=== PATIENT | female | born 1980 | race Caucasian/White ===

== ENCOUNTER 2017-06-11 23:55 | Emergency (ER) | payer OTHER ==
[2017-06-12 00:14] LABS: URINE HCG POC HCG NEGATIVE (Negative)
[2017-06-12] MEDS ORDERED: 0.9 % SODIUM CHLORIDE 10 ML DISP.SYRIN. IV (00:15)
[2017-06-12 00:22] LABS: ADD MAN DIFF? NO
[2017-06-12 00:24] LABS: RED BLOOD COUNT 4.34 x10^6/uL (3.50-5.40); WHITE BLOOD COUNT 6.5 x10^3/uL (4.0-11.0)
[2017-06-12 00:25] LABS: BASO # 0.1 x10^3/uL (0.0-0.2); BASO % 1 % (0-3); EOS # 0.3 x10^3/uL (0.0-0.7); EOS % 5 % (0-3); HEMATOCRIT 38.1 % (36.0-47.0); HEMOGLOBIN 12.4 g/dL (12.0-15.5); LYMPH # 2.9 x10^3/uL (1.0-4.8); LYMPH % 45 % (24-48); MEAN CORPUSCULAR HEMOGLOBIN 29 pg (25-35); MEAN CORPUSCULAR HGB CONC 33 g/dL (31-37); MEAN CORPUSCULAR VOLUME 88 fL (79-100); MONO # 0.6 x10^3/uL (0.0-1.1); MONO % 9 % (0-9); NEUT # 2.6 x10^3uL (1.8-7.7); NEUT % 41 % (31-73); PLATELET COUNT 288 x10^3/uL (140-400); RED CELL DISTRIBUTION WIDTH 15.9 % (11.5-14.5)
[2017-06-12 00:26] LABS: BILIRUBIN,URINE NEGATIVE (NEG); CLARITY,URINE CLEAR; GLUCOSE,URINE NEGATIVE (NEG); NITRITE,URINE NEGATIVE (NEG); PROTEIN,URINE NEGATIVE (NEG-TRACE)
[2017-06-12] MEDS: IV NORMAL SALINE 1000ML BAG 1,000 ML IV (00:27)
[2017-06-12] MEDS: HYDROmorphone 2 MG/ML VIAL IV/SQ (00:28)
[2017-06-12] MEDS: ONDANSETRON PF 4 MG/2 ML VIAL. IV (00:28)
[2017-06-12 00:37] LABS: ANION GAP 9 (6-14); BACTERIA,URINE FEW /HPF (0-FEW); BLOOD UREA NITROGEN 11 mg/dL (7-20); CALCIUM 9.2 mg/dL (8.5-10.1); CARBON DIOXIDE 30 mmol/L (21-32); CHLORIDE 104 mmol/L (98-107); COLOR,URINE YELLOW; CREATININE 0.8 mg/dL (0.6-1.0); GFR 80.7; GLUCOSE 101 mg/dL (70-99); POTASSIUM 3.4 mmol/L (3.5-5.1); RBC,URINE OCC /HPF (0-2); SODIUM 143 mmol/L (136-145); SQUAMOUS EPITHELIAL CELL,UR FEW /LPF; WBC,URINE OCC /HPF (0-4)
[2017-06-12 00:40] LABS: ALBUMIN 4.2 g/dL (3.4-5.0); ALK PHOS 65 U/L (46-116); ALT (SGPT) 15 U/L (14-59); AST (SGOT) 12 U/L (15-37); DIRECT BILIRUBIN 0.1 mg/dL (0.0-0.2); LIPASE 202 U/L (73-393); TOTAL BILIRUBIN 0.3 mg/dL (0.2-1.0); TOTAL PROTEIN 8.1 g/dL (6.4-8.2)
[2017-06-12 00:42] LABS: TROPONINI < 0.017 ng/mL (0.000-0.055)
[2017-06-12] MEDS ORDERED: CONTRAST GIVEN MC (00:45)
[2017-06-12] MEDS: diphenhydrAMINE 50 MG/ML VIAL IVP (00:48)
[2017-06-12] MEDS: KETOROLAC 30 MG/ML INJ. IV (00:48)
[2017-06-12] MEDS: IOHEXOL 300 MG/ML 100ML VIAL. IV (01:00)
[2017-06-12 01:30] LABS: INFLUENZA A PATIENT NEGATIVE (NEGATIVE); INFLUENZA B PATIENT NEGATIVE (NEGATIVE); OBC FLU VALID
[2017-06-12] MEDS: fentaNYL PF VIAL 100 MCG/2 ML VIAL IV (01:31)
[2017-06-12] MEDS ORDERED: fentaNYL PF VIAL 100 MCG/2 ML VIAL IV (02:15)
== END 2017-06-12 02:04 | disposition home or self-care (01) ==
LOC: ER 23:55
DX: K76.1 Chronic passive congestion of liver (principal); E03.9 Hypothyroidism, unspecified; F17.210 Nicotine dependence, cigarettes, uncomplicated; Z90.49 Acquired absence of other specified parts of digestive tract; Z88.0 Allergy status to penicillin; Z88.1 Allergy status to other antibiotic agents; Z88.5 Allergy status to narcotic agent
CPT/HCPCS: 36415; 74177; 80048; 80076; 81001; 81025; 83690; 84484; 85025; 87804; 87804-59; 93005; 96361; 96374; 96375; 99285-25; J1200; J1885; J2405; J3010; J7030; Q9967

== ENCOUNTER 2017-10-05 01:04 | Emergency (ER) | payer OTHER ==
[2017-10-05 01:38] LABS: URINE HCG POC HCG NEGATIVE (Negative)
== END 2017-10-05 01:47 | disposition home or self-care (01) ==
LOC: ER 01:04
DX: S16.1XXA Strain of muscle, fascia and tendon at neck level, initial encounter (principal); E03.9 Hypothyroidism, unspecified; Z88.0 Allergy status to penicillin; Z88.1 Allergy status to other antibiotic agents; Z88.5 Allergy status to narcotic agent; Z90.49 Acquired absence of other specified parts of digestive tract; Y00.XXXA Assault by blunt object, initial encounter; Y93.89 Activity, other specified; Y92.89 Other specified places as the place of occurrence of the external cause; Y99.8 Other external cause status
CPT/HCPCS: 81025; 99281; 99282

== ENCOUNTER → 2018-06-07 | Outpatient (CLI) | payer OTHER ==
[2017-10-05 01:10] VITALS: BP 120/77
[~2018-06-07] MED LIST: DICY10CA53 PO; DIPH1TAB PO; NAPR-683 PO; ONDA4TAB10 PO
== END | disposition home or self-care (01) ==
LOC: EKG 11:01
PROVIDERS: ATTEND Internal Medicine Cardiovascular Disease
DX: R55 Syncope and collapse (principal)
CPT/HCPCS: 93660

== ENCOUNTER → 2018-08-07 | Outpatient (CLI) | payer OTHER ==
[2017-10-05 01:10] VITALS: BP 120/77
[~2018-08-07] MED LIST changes: +ALPR0.5T PO; +AMIT25TA PO; +LEVO100T5 PO; +ONDA4TAB7 PO; +SUMA50TA4 PO
--- NOTE | 2018-08-07 17:21 | KCIC ---
Indication:Chronic abdominal pain. Constipation. Decreased appetite. TECHNIQUE: Supine and upright views of the abdomen and pelvis COMPARISON: None FINDINGS: Heart is normal in size. Visualized lung bases are clear. No pneumoperitoneum. Liver is mildly enlarged measuring 24 cm in craniocaudal dimension. No abnormally dilated bowel loops. No abnormal calcific densities projecting over the kidneys to suggest apparent renal stones. Moderate distal colonic stool burden. IMPRESSION: 1. Moderate distal colonic stool burden. Patient may be constipated. 2. Mild hepatomegaly. Electronically signed by: Graeme Kaur DO (08/07/2018 5:18 PM) [facility]
== END | disposition home or self-care (01) ==
LOC: KCIC 15:55
PROVIDERS: ATTEND Physician Assistant Medical
DX: R16.0 Hepatomegaly, not elsewhere classified (principal); K59.00 Constipation, unspecified
CPT/HCPCS: 74021

== ENCOUNTER 2018-08-28 19:51 | Inpatient (IN) | payer OTHER ==
[~2018-08-28] VITALS: Ht 175.3 cm; Wt 64.2 kg
[~2018-08-28 19:51] MED LIST changes: -ALPR0.5T PO; -AMIT25TA PO; -LEVO100T5 PO; -ONDA4TAB7 PO; -SUMA50TA4 PO
[2018-08-28] MEDS ORDERED: ASPIRIN 325 MG TABLET PO ONE (20:15)
[2018-08-28 20:26] LABS: BASO % 1 % (0-3); EOS # 0.2 x10^3/uL (0.0-0.7); EOS % 4 % (0-3); HEMATOCRIT 35.7 % (36.0-47.0); HEMOGLOBIN 11.9 g/dL (12.0-15.5); LYMPH # 2.4 x10^3/uL (1.0-4.8); LYMPH % 42 % (24-48); MEAN CORPUSCULAR HEMOGLOBIN 29 pg (25-35); MEAN CORPUSCULAR HGB CONC 33 g/dL (31-37); MEAN CORPUSCULAR VOLUME 88 fL (79-100); MONO # 0.6 x10^3/uL (0.0-1.1); MONO % 11 % (0-9); NEUT # 2.5 x10^3uL (1.8-7.7); NEUT % 43 % (31-73); PLATELET COUNT 273 x10^3/uL (140-400); RED BLOOD COUNT 4.04 x10^6/uL (3.50-5.40); RED CELL DISTRIBUTION WIDTH 16.5 % (11.5-14.5); WHITE BLOOD COUNT 5.8 x10^3/uL (4.0-11.0)
[2018-08-28 20:35] LABS: BILIRUBIN,URINE NEGATIVE (NEG); CLARITY,URINE CLEAR; COLOR,URINE YELLOW; NITRITE,URINE NEGATIVE (NEG); PROTEIN,URINE NEGATIVE (NEG-TRACE); UROBILINOGEN,URINE 0.2 mg/dL (0.2 mg/dL)
[2018-08-28 20:36] LABS: PROTHROMBIN TIME PATIENT 13.7 SEC (11.7-14.0)
[2018-08-28 20:37] LABS: CALCIUM 9.6 mg/dL (8.5-10.1); CREATININE 0.7 mg/dL (0.6-1.0); GFR 93.6; POTASSIUM 3.2 mmol/L (3.5-5.1)
[2018-08-28 20:39] LABS: D-DIMER < 0.27 ug/mlFEU (0.00-0.50)
[2018-08-28 20:42] LABS: BACTERIA,URINE 0 /HPF (0-FEW); RBC,URINE OCC /HPF (0-2); WBC,URINE 0 /HPF (0-4)
[2018-08-28 20:43] LABS: SQUAMOUS EPITHELIAL CELL,UR FEW /LPF
[2018-08-28 20:43] LABS: ALBUMIN 4.6 g/dL (3.4-5.0); ALBUMIN/GLOBULIN RATIO 1.2 (1.0-1.7); MAGNESIUM 2.2 mg/dL (1.8-2.4); TOTAL BILIRUBIN 0.4 mg/dL (0.2-1.0); TOTAL PROTEIN 8.5 g/dL (6.4-8.2)
[2018-08-28 20:46] LABS: AMPHETAMINE/METHAMPHETAMINE NEG (NEG); BARBITURATES NEG (NEG); BENZODIAZEPINES NEG (NEG); CANNABINOIDS NEG (NEG); COCAINE NEG (NEG); METHADONE NEG (NEG); OPIATES NEG (NEG); PHENCYCLIDINE NEG (NEG)
[2018-08-28 20:52] LABS: CREATINE KINASE 46 U/L (26-192)
[2018-08-28] MEDS ORDERED: POTASSIUM CHLORIDE 20 MEQ TABLET.ER. PO ONE (21:15)
[2018-08-28] MEDS ORDERED: MECLIZINE HCL 12.5 MG TABLET. PO ONE (21:45)
[2018-08-28] MEDS ORDERED: IV NORMAL SALINE 1000ML BAG 1,000 ML IV ONE (22:15)
[2018-08-28] MEDS ORDERED: fentaNYL PF VIAL 100 MCG/2 ML VIAL IV PRN (22:15)
[2018-08-28] MEDS ORDERED: ONDANSETRON PF 4 MG/2 ML VIAL. IV PRN (22:15)
[2018-08-28] MEDS ORDERED: NITROGLYCERIN SUBLINGUAL 0.4 MG BOTTLE OF 25. SL PRN (22:15)
--- NOTE | 2018-08-28 22:15 | PHYS DOC ---
Past Medical History Past Medical History: Hypothyroid Past Surgical History: Cholecystectomy Alcohol Use: None Drug Use: None Adult General Chief Complaint Chief Complaint: CHEST PAIN HPI HPI Patient is a 38 year old female with history of hypothyroidism, hole in the heart, who presents today complaining of 6 out of 10 of sternal chest pain nonradiating in nature that began at 2 PM today. Patient's also complaining of intermittent episodes of dizziness. She states she almost passed out today. Denies anything specific in excess abating or relieving the pain. Patient states she has been following up with Dr. Schwartz and they are supposed to do a test on for cardiac work up. Review of Systems Review of Systems Constitutional: Denies fever or chills [] Eyes: Denies change in visual acuity, redness, or eye pain [] HENT: Denies nasal congestion or sore throat [] Respiratory: Denies cough or shortness of breath [] Cardiovascular: Reports chest pain GI: Denies abdominal pain, nausea, vomiting, bloody stools or diarrhea [] : Denies dysuria or hematuria [] Musculoskeletal: Denies back pain or joint pain [] Integument: Denies rash or skin lesions [] Neurologic: Reports dizziness. Denies headache, focal weakness or sensory changes [] All other systems were reviewed and found to be within normal limits, except as documented in this note. Current Medications Current Medications Current Medications Medications (Trade) Dose Ordered Sig/[facility] Start Time Stop Time Status Last Admin Dose Admin Aspirin (Eduardo Aspirin) 325 mg 1X ONCE 08/28/18 20:15 08/28/18 20:22 DC 08/28/18 20:45 325 MG Fentanyl Citrate (Fentanyl 2ml Vial) 50 mcg PRN Q1HR PRN 08/28/18 22:15 08/29/18 22:14 Meclizine HCl (Antivert) 25 mg 1X ONCE 08/28/18 21:45 08/28/18 21:46 DC 08/28/18 21:47 25 MG Nitroglycerin (Nitrostat) 0.4 mg PRN Q5MIN PRN 08/28/18 22:15 08/29/18 22:14 Ondansetron HCl (Zofran) 4 mg PRN Q8HRS PRN 08/28/18 22:15 08/29/18 22:14 Potassium Chloride (Klor-Con) 40 meq 1X ONCE 08/28/18 21:15 08/28/18 21:16 DC 08/28/18 21:34 40 MEQ Sodium Chloride 1,000 ml @ 75 mls/hr 1X ONCE 08/28/18 22:15 08/29/18 11:34 Allergies Allergies Allergies Coded Allergies Type Severity Reaction Last Updated Verified Penicillins Allergy Severe HIVES/ANAPHYLAXIS 06/12/17 Yes erythromycin base Allergy Severe HIVES/ANAPHYLAXIS 06/12/17 Yes hydromorphone Allergy Mild DELUSIONAL 06/12/17 Yes Physical Exam Physical Exam Constitutional: Well developed, well nourished, no acute distress, non-toxic appearance. [] HENT: Normocephalic, atraumatic, bilateral external ears normal, oropharynx moist, no oral exudates, nose normal. [] Eyes: PERRLA, EOMI, conjunctiva normal, no discharge. [] Neck: Normal range of motion, no tenderness, supple, no stridor. [] Cardiovascular:Heart rate regular rhythm, no murmur [] Lungs & Thorax: Bilateral breath sounds clear to auscultation [] Abdomen: Bowel sounds normal, soft, no tenderness, no masses, no pulsatile masses. [] Skin: Warm, dry, no erythema, no rash. [] Back: No tenderness, no CVA tenderness. [] Extremities: No tenderness, no cyanosis, no clubbing, ROM intact, no edema. [] Neurologic: Alert and oriented X 3, normal motor function, normal sensory function, no focal deficits noted. Cranial nerves II through XII intact Psychologic: Affect normal, judgement normal, mood normal. [] Current Patient Data Lab Values Laboratory Tests Test 08/28/18 20:05 08/28/18 20:25 08/28/18 20:28 White Blood Count 5.8 x10^3/uL (4.0-11.0) Red Blood Count 4.04 x10^6/uL (3.50-5.40) Hemoglobin 11.9 g/dL (12.0-15.5) L Hematocrit 35.7 % (36.0-47.0) L Mean Corpuscular Volume 88 fL (79-100) Mean Corpuscular Hemoglobin 29 pg (25-35) Mean Corpuscular Hemoglobin Concent 33 g/dL (31-37) Red Cell Distribution Width 16.5 % (11.5-14.5) H Platelet Count 273 x10^3/uL (140-400) Neutrophils (%) (Auto) 43 % (31-73) Lymphocytes (%) (Auto) 42 % (24-48) Monocytes (%) (Auto) 11 % (0-9) H Eosinophils (%) (Auto) 4 % (0-3) H Basophils (%) (Auto) 1 % (0-3) Neutrophils # (Auto) 2.5 x10^3uL (1.8-7.7) Lymphocytes # (Auto) 2.4 x10^3/uL (1.0-4.8) Monocytes # (Auto) 0.6 x10^3/uL (0.0-1.1) Eosinophils # (Auto) 0.2 x10^3/uL (0.0-0.7) Basophils # (Auto) 0.0 x10^3/uL (0.0-0.2) Prothrombin Time 13.7 SEC (11.7-14.0) Prothrombin Time INR 1.1 (0.8-1.1) D-Dimer (Dolly) < 0.27 ug/mlFEU Sodium Level 143 mmol/L (136-145) Potassium Level 3.2 mmol/L (3.5-5.1) L Chloride Level 104 mmol/L (98-107) Carbon Dioxide Level 28 mmol/L (21-32) Anion Gap 11 (6-14) Blood Urea Nitrogen 7 mg/dL (7-20) Creatinine 0.7 mg/dL (0.6-1.0) Estimated GFR (Cockcroft-Gault) 93.6 BUN/Creatinine Ratio 10 (6-20) Glucose Level 96 mg/dL (70-99) Calcium Level 9.6 mg/dL (8.5-10.1) Magnesium Level 2.2 mg/dL (1.8-2.4) Total Bilirubin 0.4 mg/dL (0.2-1.0) Aspartate Amino Transferase (AST) 12 U/L (15-37) L Alanine Aminotransferase (ALT) 13 U/L (14-59) L Alkaline Phosphatase 73 U/L (46-116) Creatine Kinase 46 U/L (26-192) Creatine Kinase MB (Mass) < 0.5 ng/mL (0.0-3.6) Creatine Kinase MB Relative Index % (0-4) Troponin I Quantitative < 0.017 ng/mL (0.000-0.055) BB-Cgb-Q-Type Natriuretic Peptide 58 pg/mL (0-124) Total Protein 8.5 g/dL (6.4-8.2) H Albumin 4.6 g/dL (3.4-5.0) Albumin/Globulin Ratio 1.2 (1.0-1.7) Thyroid Stimulating Hormone (TSH) 15.469 uIU/mL (0.358-3.74) H Urine Collection Type Unknown Urine Color Yellow Urine Clarity Clear Urine pH 7.0 Urine Specific [place] 1.010 Urine Protein Negative mg/dL (NEG-TRACE) Urine Glucose (UA) Negative mg/dL (NEG) Urine Ketones (Stick) Negative mg/dL (NEG) Urine Blood Small (NEG) Urine Nitrite Negative (NEG) Urine Bilirubin Negative (NEG) Urine Urobilinogen Dipstick 0.2 mg/dL (0.2 mg/dL) Urine Leukocyte Esterase Negative (NEG) Urine RBC Occ /HPF (0-2) Urine WBC 0 /HPF (0-4) Urine Squamous Epithelial Cells Few /LPF Urine Bacteria 0 /HPF (0-FEW) Urine Mucus Slight /LPF Urine Opiates Screen Neg (NEG) Urine Methadone Screen Neg (NEG) Urine Barbiturates Neg (NEG) Urine Phencyclidine Screen Neg (NEG) Urine Amphetamine/Methamphetamine Neg (NEG) Urine Benzodiazepines Screen Neg (NEG) Urine Cocaine Screen Neg (NEG) Urine Cannabinoids Screen Neg (NEG) Urine Ethyl Alcohol Neg (NEG) POC Urine HCG, Qualitative Hcg negative (Negative) Laboratory Tests 08/28/18 20:05 Laboratory Tests 08/28/18 20:05 EKG EKG 20:[address] Osei sinus rhythm HR 63 no STEMI[] Radiology/Procedures Radiology/Procedures [] Course & Med Decision Making Course & Med Decision Making Pertinent Labs and Imaging studies reviewed. (See chart for details) This is a 38-year-old female patient presenting to the ED today complaining of chest pain and dizziness, symptoms began this afternoon at 2 PM. Cardiac work up is negative. Consulted with Dr. Schwartz Consulted with Dr. Miller who accepted patient for admission Heart score 0 Dragon Disclaimer Dragon Disclaimer This electronic medical record was generated, in whole or in part, using a voice recognition dictation system. Departure Departure Impression: Primary Impression: Chest pain Additional Impression: Dizziness Disposition: 09 ADMITTED INPATIENT Condition: STABLE Referrals: MARCELINO ZUNIGA PA-C (PCP) Problem Qualifiers Primary Impression: Chest pain Chest pain type: unspecified Qualified Codes: R07.9 - Chest pain, unspecified YANIRA MONTEMAYOR FINISHING PAN OPERATOR Aug 28, 2018 22:15
[2018-08-29 00:02] VITALS: BP 115/56
--- NOTE | 2018-08-29 00:16 | HP ---
ADMIT DATE: 08/28/2018 CHIEF COMPLAINT: Chest pain. HISTORY OF PRESENT ILLNESS: The patient is a pleasant, healthy, middle-aged female, who presents with chest pain. She has been followed by Dr. Schwartz and trying to get a cardiac workup done and she is supposed to have an echo done next week, but she just could not take it any longer. Her pain has been worsening. The ER doctor called Dr. Schwartz. He would like the patient admitted for further cardiac evaluation. The patient is currently being examined in the ER. PAST MEDICAL HISTORY: Chronic chest pain, hypothyroidism, cholecystectomy, probable anxiety. ALLERGIES: PENICILLIN, ERYTHROMYCIN AND HYDROMORPHONE. FAMILY HISTORY: Coronary disease in 3 of her uncles. SOCIAL HISTORY: She does not drink, smoke or take drugs. She is . MEDICATIONS: Reviewed. She is on four including Bentyl, Naprosyn, Lomotil and Zofran. REVIEW OF SYSTEMS: GENERAL: No history of weight change, weakness or fevers. SKIN: No bruising, hair changes or rashes. EYES: No blurred, double or loss of vision. NOSE AND THROAT: No history of nosebleeds, hoarseness or sore throat. HEART: She complains of chest pain. LUNGS: Denies cough, hemoptysis, wheezing or shortness of breath. GASTROINTESTINAL: Denies changes in appetite, nausea, vomiting, diarrhea or constipation. GENITOURINARY: No history of frequency, urgency, hesitancy or nocturia. NEUROLOGIC: She complains of dizziness. PSYCHIATRIC: No history of panic, anxiety or depression. ENDOCRINE: No history of heat or cold intolerance, polyuria or polydipsia. EXTREMITIES: Denies muscle weakness, joint pain, pain on walking or stiffness. PHYSICAL EXAMINATION: VITAL SIGNS: Stable. Temperature afebrile, pulse 92, respirations 18, blood pressure 102/66. GENERAL: She is alert, cooperative. Her is present. HEART: Normal S1, S2. LUNGS: Clear. ABDOMEN: Soft. EXTREMITIES: No edema. SKIN: No rash. ENDOCRINE: No thyromegaly. LYMPHATICS: No cervical nodes. HEMATOPOIETIC: No bruising. PSYCHIATRIC: She is anxious. LABORATORY DATA: Hemoglobin is 11.9. Electrolytes are normal other than potassium of 3.2. TSH 15.469. Chest x-ray results are pending. ASSESSMENT AND PLAN: Chest pain and incidental finding of high TSH consistent with hypothyroidism. The patient has been admitted. I will start her on IV Synthroid 125 mcg q. day. We will need to change her to p.o. when she leaves. Cardiac monitoring, serial enzymes, serial EKGs, home meds, DVT prophylaxis. Full code. Consult Dr. Schwartz. LUKE BOLTON DO DR: MERCED/amanda JOB#: [id number] / [id number]
[2018-08-29] MEDS ORDERED: ALPR0.5T PO (00:21)
[2018-08-29] MEDS ORDERED: ONDA4TAB7 PO (00:21)
[2018-08-29] MEDS ORDERED: LEVO100T5 PO (00:21)
[2018-08-29 02:12] LABS: BASO # 0.1 x10^3/uL (0.0-0.2); BASO % 1 % (0-3); EOS # 0.3 x10^3/uL (0.0-0.7); EOS % 5 % (0-3); HEMATOCRIT 28.8 % (36.0-47.0); HEMOGLOBIN 9.5 g/dL (12.0-15.5); LYMPH # 2.8 x10^3/uL (1.0-4.8); LYMPH % 48 % (24-48); MEAN CORPUSCULAR HEMOGLOBIN 29 pg (25-35); MEAN CORPUSCULAR HGB CONC 33 g/dL (31-37); MEAN CORPUSCULAR VOLUME 88 fL (79-100); MONO # 0.5 x10^3/uL (0.0-1.1); MONO % 9 % (0-9); NEUT # 2.2 x10^3uL (1.8-7.7); NEUT % 38 % (31-73); PLATELET COUNT 204 x10^3/uL (140-400); RED BLOOD COUNT 3.28 x10^6/uL (3.50-5.40); RED CELL DISTRIBUTION WIDTH 16.5 % (11.5-14.5); WHITE BLOOD COUNT 5.8 x10^3/uL (4.0-11.0)
[2018-08-29 02:42] LABS: CALCIUM 8.5 mg/dL (8.5-10.1); CREATININE 0.7 mg/dL (0.6-1.0); GFR 93.6
--- NOTE | 2018-08-29 02:50 | NUR ---
Pt arrived by niyarpaulina to room. Reviewed Pt's medications and orders. Educated Pt. on room, call light, and bathroom.
[2018-08-29 02:56] VITALS: BP 112/61
[2018-08-29] MEDS ORDERED: LEVOTHYROXINE 125 MCG TABLET PO SCH (06:00)
--- NOTE | 2018-08-29 06:43 | EKG ---
[facility] [address] [place] [address] Test Date: 2018-08-28 Test Time: 20:05:46 Pat Name: GUERLINE ELLISON Department: Room: [facility] Gender: F Inspector Mechanical: JOSE : 1980 Requested By: YANIRA MONTEMAYOR Order Number: [id number] Reading MD: Dalton Carter MD Measurements Intervals [place] Rate: 63 P: 49 DE: 134 QRS: 49 QRSD: 76 T: 31 QT: 388 QTc: 400 Interpretive Statements SINUS RHYTHM Electronically Signed On 08-31-2018 10:04:51 CDT by Dalton Carter MD
[2018-08-29 07:30] VITALS: BP 108/53
--- NOTE | 2018-08-29 07:50 | RAD ---
EXAM: Chest, single view. HISTORY: Chest pain. COMPARISON: None. FINDINGS: A frontal view of the chest is obtained. There is no infiltrate, pleural effusion or pneumothorax. The heart is normal in size. IMPRESSION: No acute pulmonary finding. Electronically signed by: Marium Orlando MD (08/29/2018 7:47 AM) [place] [id number]
[2018-08-29 08:29] LABS: CHOLESTEROL/HDL RATIO 3.4
[2018-08-29] MEDS ORDERED: IBUPROFEN 200 MG TABLET. PO PRN (09:15)
--- NOTE | 2018-08-29 11:05 | PDOC2 ---
GRACE NG [employer] 08/29/18 1105: CARDIAC CONSULT DATE OF CONSULT Date of Consult DATE: 08/29/18 TIME: 11:01 REASON FOR CONSULT Reason for Consult: Chest pain REFERRING PHYSICIAN Referring Physician: Santhosh SOURCE Source: Chart review, Patient HISTORY OF PRESENT ILLNESS HISTORY OF PRESENT ILLNESS This is a pleasant 38 yo female admitted for complains of chest pain. Reports no SOA but still having some dizzy spells but more so with vertigo. No nausea or vomiting. Her pain is under her left breast feels sharp and pressure. No recent falls or injury but almost fell again the other day. No prior hx of CVA and actually has had an outpt event monitor and tilt table test recently which were negative for any significant abnormalities. 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 She does have depression whic is now controlled and also has stopped taking her thyroid medications which she just started taking 3-4 weeks ago. she has stopped taking this due to prior issues with depression which is now controlled. PAST MEDICAL HISTORY Cardiovascular: Syncope Hepatobiliary: Cholelithiasis Psych: Depression Endocrine: Hypothyroidism PAST SURGICAL HISTORY Past Surgical History: Cholecystectomy FAMILY HISTORY Family History: Hypertension SOCIAL HISTORY Smoke: <1 pack per day ALCOHOL: none Drugs: None Lives: with Family CURRENT MEDICATIONS CURRENT MEDICATIONS Current Medications Medications (Trade) Dose Ordered Sig/Edda Route PRN Reason Start Time Stop Time Status Last Admin Dose Admin Aspirin (Eduardo Aspirin) 325 mg 1X ONCE PO 08/28/18 20:15 08/28/18 20:22 DC 08/28/18 20:45 Potassium Chloride (Klor-Con) 40 meq 1X ONCE PO 08/28/18 21:15 08/28/18 21:16 DC 08/28/18 21:34 Meclizine HCl (Antivert) 25 mg 1X ONCE PO 08/28/18 21:45 08/28/18 21:46 DC 08/28/18 21:47 Sodium Chloride 1,000 ml @ 75 mls/hr 1X ONCE IV 08/28/18 22:15 08/29/18 11:34 08/29/18 00:08 Levothyroxine Sodium (Synthroid) 125 mcg DAILY06 PO 08/29/18 06:00 08/29/18 05:33 Ibuprofen (Motrin) 600 mg PRN TID PRN PO INFLAMMATION 08/29/18 09:15 08/29/18 09:14 ALLERGIES ALLERGIES: Coded Allergies: Penicillins (Verified Allergy, Severe, HIVES/ANAPHYLAXIS, 06/12/17) erythromycin base (Verified Allergy, Severe, HIVES/ANAPHYLAXIS, 06/12/17) hydromorphone (Verified Allergy, Mild, DELUSIONAL, 06/12/17) ROS Review of System 14 point ROS evaluated with pertinent positives noted per HPI PHYSICAL EXAM General: Alert, Oriented X3, Cooperative, No acute distress HEENT: Atraumatic, Mucous membr. moist/pink Heart: Regular rate (SR), Normal S1, Normal S2, No murmurs, Other (2/6 systolic murmur to LLS border) Abdomen: Soft, No tenderness Extremities: No cyanosis, No edema Skin: No breakdown, No significant lesion Neuro: Normal speech, Sensation intact Psych/Mental Status: Mental status NL, Mood NL MUSCULOSKELETAL: Full range of motion without pain VITALS VITALS Vital Signs Date Time Temp Pulse Resp B/P (MAP) Pulse Ox O2 Delivery O2 Flow Rate FiO2 08/29/18 08:00 Room Air 08/29/18 07:30 98.0 59 14 108/53 (71) 97 98.0 LABS Lab: Laboratory Tests Test 08/28/18 20:05 08/28/18 20:25 08/28/18 20:28 08/29/18 02:04 White Blood Count 5.8 x10^3/uL (4.0-11.0) 5.8 x10^3/uL (4.0-11.0) Red Blood Count 4.04 x10^6/uL (3.50-5.40) 3.28 x10^6/uL (3.50-5.40) Hemoglobin 11.9 g/dL (12.0-15.5) 9.5 g/dL (12.0-15.5) Hematocrit 35.7 % (36.0-47.0) 28.8 % (36.0-47.0) Mean Corpuscular Volume 88 fL (79-100) 88 fL (79-100) Mean Corpuscular Hemoglobin 29 pg (25-35) 29 pg (25-35) Mean Corpuscular Hemoglobin Concent 33 g/dL (31-37) 33 g/dL (31-37) Red Cell Distribution Width 16.5 % (11.5-14.5) 16.5 % (11.5-14.5) Platelet Count 273 x10^3/uL (140-400) 204 x10^3/uL (140-400) Neutrophils (%) (Auto) 43 % (31-73) 38 % (31-73) Lymphocytes (%) (Auto) 42 % (24-48) 48 % (24-48) Monocytes (%) (Auto) 11 % (0-9) 9 % (0-9) Eosinophils (%) (Auto) 4 % (0-3) 5 % (0-3) Basophils (%) (Auto) 1 % (0-3) 1 % (0-3) Neutrophils # (Auto) 2.5 x10^3uL (1.8-7.7) 2.2 x10^3uL (1.8-7.7) Lymphocytes # (Auto) 2.4 x10^3/uL (1.0-4.8) 2.8 x10^3/uL (1.0-4.8) Monocytes # (Auto) 0.6 x10^3/uL (0.0-1.1) 0.5 x10^3/uL (0.0-1.1) Eosinophils # (Auto) 0.2 x10^3/uL (0.0-0.7) 0.3 x10^3/uL (0.0-0.7) Basophils # (Auto) 0.0 x10^3/uL (0.0-0.2) 0.1 x10^3/uL (0.0-0.2) Prothrombin Time 13.7 SEC (11.7-14.0) Prothromb Time International Ratio 1.1 (0.8-1.1) D-Dimer (Dolly) < 0.27 ug/mlFEU Sodium Level 143 mmol/L (136-145) 143 mmol/L (136-145) Potassium Level 3.2 mmol/L (3.5-5.1) 4.0 mmol/L (3.5-5.1) Chloride Level 104 mmol/L (98-107) 108 mmol/L (98-107) Carbon Dioxide Level 28 mmol/L (21-32) 26 mmol/L (21-32) Anion Gap 11 (6-14) 9 (6-14) Blood Urea Nitrogen 7 mg/dL (7-20) 6 mg/dL (7-20) Creatinine 0.7 mg/dL (0.6-1.0) 0.7 mg/dL (0.6-1.0) Estimated GFR (Cockcroft-Gault) 93.6 93.6 BUN/Creatinine Ratio 10 (6-20) Glucose Level 96 mg/dL (70-99) 97 mg/dL (70-99) Calcium Level 9.6 mg/dL (8.5-10.1) 8.5 mg/dL (8.5-10.1) Magnesium Level 2.2 mg/dL (1.8-2.4) Total Bilirubin 0.4 mg/dL (0.2-1.0) Aspartate Amino Transf (AST/SGOT) 12 U/L (15-37) Alanine Aminotransferase (ALT/SGPT) 13 U/L (14-59) Alkaline Phosphatase 73 U/L (46-116) Creatine Kinase 46 U/L (26-192) Creatine Kinase MB (Mass) < 0.5 ng/mL (0.0-3.6) Creatine Kinase MB Relative Index % (0-4) Troponin I Quantitative < 0.017 ng/mL (0.000-0.055) < 0.017 ng/mL (0.000-0.055) PT-Xhl-P-Type Natriuretic Peptide 58 pg/mL (0-124) Total Protein 8.5 g/dL (6.4-8.2) Albumin 4.6 g/dL (3.4-5.0) Albumin/Globulin Ratio 1.2 (1.0-1.7) Thyroid Stimulating Hormone (TSH) 15.469 uIU/mL (0.358-3.74) Urine Collection Type Unknown Urine Color Yellow Urine Clarity Clear Urine pH 7.0 Urine Specific [place] 1.010 Urine Protein Negative mg/dL (NEG-TRACE) Urine Glucose (UA) Negative mg/dL (NEG) Urine Ketones (Stick) Negative mg/dL (NEG) Urine Blood Small (NEG) Urine Nitrite Negative (NEG) Urine Bilirubin Negative (NEG) Urine Urobilinogen Dipstick 0.2 mg/dL (0.2 mg/dL) Urine Leukocyte Esterase Negative (NEG) Urine RBC Occ /HPF (0-2) Urine WBC 0 /HPF (0-4) Urine Squamous Epithelial Cells Few /LPF Urine Bacteria 0 /HPF (0-FEW) Urine Mucus Slight /LPF Urine Opiates Screen Neg (NEG) Urine Methadone Screen Neg (NEG) Urine Barbiturates Neg (NEG) Urine Phencyclidine Screen Neg (NEG) Urine Amphetamine/Methamphetamine Neg (NEG) Urine Benzodiazepines Screen Neg (NEG) Urine Cocaine Screen Neg (NEG) Urine Cannabinoids Screen Neg (NEG) Urine Ethyl Alcohol Neg (NEG) Bedside Urine HCG, Qualitative Hcg negative (Negative) Triglycerides Level 57 mg/dL (0-150) Cholesterol Level 122 mg/dL (0-200) LDL Cholesterol, Calculated 75 mg/dL (0-100) VLDL Cholesterol, Calculated 11 mg/dL (0-40) Non-HDL Cholesterol Calculated 86 mg/dL (0-129) HDL Cholesterol 36 mg/dL (40-60) Cholesterol/HDL Ratio 3.4 Free Thyroxine 0.81 ng/dL (0.76-1.46) Test 08/29/18 09:10 Troponin I Quantitative < 0.017 ng/mL (0.000-0.055) ASSESSMENT/PLAN ASSESSMENT/PLAN 1. Atypical chest pain: possibly GI 2. Hypothyroidism: TSH 15 not controlled due to previous noncompliance. Restarted med 3-4 weeks ago 3. Dizziness: more from vertigo with multifactorial issues namely hypothyroidism and possible Menieres. No significant arrhythmia so far 4. Positive bubble study PFO vs ASD 5. Depression: now controlled per pt 6. Normocytic anemia: Hgb 9.5 per PCP 7. Asymptomatic SB: lowest mid 40s. Mean at upper 50s, doubt this is associated with #3 and #2 would be contributing. Negative for orthostasis Recommendations 1. May need to start on low dose ECASA. Check lipids 2. Neurology consult pending. Head CT. 3. Start on pepcid. Synthroid per PCP. 4. Symptoms most likely stem from #2. Discussed compliance. 5. Loop recorder is an option if pending tests remains inconclusive. MARIA LUZ MARTINS MD 08/29/18 1248: CARDIAC CONSULT ASSESSMENT/PLAN ASSESSMENT/PLAN Patient seen and examined. Agree with MOLD SHEET CLEANER's assessment and plan. Chest pain with atypical features. Myocardial infarction has been ruled out. 2-D echo without any wall motion abnormalities. LV function normal. Bubble study positive. Patient was recently seen in our office for syncope. Workup including tilt table test and event monitor were negative. Her dizziness is suspicious for vertigo but cannot rule out meniere's (seen by ENT recently). Check orthostatics. Consider CT scan head. Thank you for your consultation. GRACE NG APRN Aug 29, 2018 11:05 MARIA LUZ MARTINS MD Aug 29, 2018 12:48
[2018-08-29 11:42] VITALS: BP 99/59
[2018-08-29 11:43] VITALS: BP_SYST 100; BP_SYST 106; BP_DIAS 55; BP_DIAS 62
--- NOTE | 2018-08-29 11:43 | PDOC ---
MODERATE SEDATION ASSESSMENT RISKS/ALTERNATIVES Risks/Alternatives Risks and alternatives of this type of sedation and procedure discussed with: RISK/ALTERNATIVES: Patient H & P ON CHART H & P H & P on chart and reviewed for co-morbid conditions and appropriate labs. H&P ON CHART: Yes STATUS PREG STATUS ASSESSED: N/A MEDS/ALLERGIES REVIEWED Meds/Allergies Reviewed Medications and Allergies including time and route of recently administered narcotics and sedatives. MEDS/ALLERGIES REVIEWED: Yes ASA RATING ASA RATING: II AIRWAY ASSESSMENT Airway Assessment Airway patency, oral function limitations, presence of caps, crowns, dentures, partials, and ability to extend neck assessed. AIRWAY ASSESSMENT: Yes MALLAMPATI SCORE MALLAMPATI SCORE: II PRE-SEDATION ASSESSMENT PRE-SEDATION ASSESSMENT: Yes MARIA LUZ MARTINS MD Aug 29, 2018 11:43
--- NOTE | 2018-08-29 12:20 | RAD ---
EXAM: Head CT without contrast. HISTORY: Headache. TECHNIQUE: Computed tomographic images of the head were obtained without contrast. *One or more of the following individualized dose reduction techniques were utilized for this examination: 1. Automated exposure control. 2. Adjustment of the mA and/or kV according to patient size. 3. Use of iterative reconstruction technique. COMPARISON: None. FINDINGS: There is no acute or subacute extra-axial or intraparenchymal hemorrhage. There is no mass effect or midline shift. There is no hydrocephalus. The kenney-white matter differentiation pattern is intact. The visualized portions of the orbits, paranasal sinuses and mastoid air cells are unremarkable. No suspicious calvarial lesion is seen. IMPRESSION: No acute intracranial findings. Electronically signed by: Marium Orlando MD (08/29/2018 12:17 PM) [place] [id number]
--- NOTE | 2018-08-29 12:21 | CARD ---
MR#: [id number] Date of Study: 08/29/2018 Ordering Physician: GRACE NG, Referring Physician: LUKE BOLTON Tech: Michelle Gutierrez RDCS APPROVED REPORT EXAM: Two-dimensional and M-mode echocardiogram with Doppler and color Doppler. Other Information Quality : Good INDICATION Chest Pain R/O PFO Echo Enhancing Agent Agent/Amount Used: Agitated Saline 8mL 2D DIMENSIONS Left Atrium(2D)2.4 (1.6-4.0cm)IVSd0.9 (0.7-1.1cm) Aortic Root(2D)2.5 (2.0-3.7cm)LVDd4.6 (3.9-5.9cm) LVOT Diameter2.1 (1.8-2.4cm)PWd0.9 (0.7-1.1cm) LVDs3.0 (2.5-4.0cm)FS (%) 34.8 % SV63.5 mlLVEF(%)60.0 (>50%) Aortic Valve AoV Peak Rolo.115.4cm/sAoV VTI23.7cm AO Peak GR.5.3mmHgLVOT Peak Rolo.113.5cm/s AO Mean GR.3mmHgAVA (VMAX)3.25cm2 FELA (VTI)3.30cm2 Mitral Valve MV E Zsvddjio20.0cm/sMV DECEL [id number] MV A Uzlrbgrf69.4cm/sE/A Ratio2.1 Tricuspid Valve TR P. Yajgdrqw897yw/sRAP [id number] TR Peak Gr.[id number] Pulmonary Vein S1 Ruhbuxkz42.4cm/sD2 Ktpixatb51.0cm/s LEFT VENTRICLE The left ventricle is normal size. There is normal left ventricular wall thickness. The left ventricu lar systolic function is normal. The Ejection Fraction is 60%. There is normal LV segmental wall carmen on. The left ventricular diastolic function and filling is normal for age. RIGHT VENTRICLE The right ventricle is normal size. The right ventricular systolic function is normal. ATRIA The left atrium size is normal. The right atrium size is normal. The interatrial septum is intact wit h no evidence for an atrial septal defect or patent foramen ovale as noted on 2-D or Doppler imaging. Bubble study positive for interatrial shunt. AORTIC VALVE The aortic valve is not well visualized but appears to be functioning normally by Doppler interrogati on. Doppler and Color Flow revealed no significant aortic regurgitation. There is no significant aort ic valvular stenosis. MITRAL VALVE The mitral valve is normal in structure and function. There is no evidence of mitral valve prolapse. There is no mitral valve stenosis. Doppler and Color Flow revealed no mitral valve regurgitation note d. TRICUSPID VALVE The tricuspid valve is normal in structure and function. Doppler and Color Flow revealed trace tricus pid regurgitation. The PA pressure was estimated at 22 mmHg. There is no tricuspid valve stenosis. PULMONIC VALVE The pulmonic valve is not well visualized. Doppler and Color Flow revealed no pulmonic valvular regur gitation. There is no pulmonic valvular stenosis. GREAT VESSELS The aortic root is normal in size. The ascending aorta is normal in size. The IVC is dilated and geovany apses >50% with inspiration. PERICARDIAL EFFUSION There is no evidence of significant pericardial effusion. Critical Notification Critical Value: No <Conclusion> The left ventricular systolic function is normal. The Ejection Fraction is 60%. There is normal LV segmental wall motion. Doppler and Color Flow revealed trace tricuspid regurgitation. The PA pressure was estimated at 22 mmHg. There is no evidence of significant pericardial effusion. Bubble study positive for interatrial shunt. Signed by : Justus Schwartz, Electronically Approved : 08/29/2018 12:20:42
--- NOTE | 2018-08-29 12:22 | PDOC ---
PROGRESS NOTES Chief Complaint Chief Complaint Chest pain with ACS ruled out dounbt cardiac etiology Hypothyroidism acquired Depression ? Chronic daily headaches Plan: patient may benefit from migraine prophylaxis meds, discussed different options reassurance provided regarding the benign nature of her current work up Patient seems medically stable at this time will continue with Levothyroxine at 125 mcg daily hoepfully discharge soon History of Present Illness History of Present Illness complaining of headache no other compalitns, chest pain has resolved. No neurological deficits. Vitals Vitals Vital Signs Date Time Temp Pulse Resp B/P (MAP) Pulse Ox O2 Delivery O2 Flow Rate FiO2 08/29/18 11:43 62 100/62 (75) 08/29/18 08:00 Room Air 08/29/18 07:30 98.0 14 97 98.0 Physical Exam Physical Exam Gen.: well-developed well-nourished in no apparent distress Head: Normal shape atraumatic Eyes: Pupils equal reactive to light and accommodation, normal conjunctivae and lids Ears: Normal shape Nose: Normal shape no trauma Mouth: No exudates of the back of throat no thrush no lesions Neck: Supple no JVD no carotid bruit or lymphadenopathy no thyromegaly Chest: Lungs clear to auscultation with good inspiratory effort no crackles rales or rhonchi Cardiovascular: S1-S2 regular rhythm no murmurs gallops or rubs Abdomen: Bowel sounds present soft nontender no hepatosplenomegaly appreciated sign Extremities: No clubbing no cyanosis no edema peripheral pulses palpated bilaterally Neurological: Alert awake oriented in person time place and situation, cranial nerves II through XII intact, no motor or sensory deficits appreciated Psych: Appropriate mood, cooperative Heart: Other (2/6 systolic murmur to LLS border) Labs LABS Laboratory Tests Test 08/28/18 20:05 08/28/18 20:25 08/28/18 20:28 08/29/18 02:04 White Blood Count 5.8 x10^3/uL (4.0-11.0) 5.8 x10^3/uL (4.0-11.0) Red Blood Count 4.04 x10^6/uL (3.50-5.40) 3.28 x10^6/uL (3.50-5.40) Hemoglobin 11.9 g/dL (12.0-15.5) 9.5 g/dL (12.0-15.5) Hematocrit 35.7 % (36.0-47.0) 28.8 % (36.0-47.0) Mean Corpuscular Volume 88 fL (79-100) 88 fL (79-100) Mean Corpuscular Hemoglobin 29 pg (25-35) 29 pg (25-35) Mean Corpuscular Hemoglobin Concent 33 g/dL (31-37) 33 g/dL (31-37) Red Cell Distribution Width 16.5 % (11.5-14.5) 16.5 % (11.5-14.5) Platelet Count 273 x10^3/uL (140-400) 204 x10^3/uL (140-400) Neutrophils (%) (Auto) 43 % (31-73) 38 % (31-73) Lymphocytes (%) (Auto) 42 % (24-48) 48 % (24-48) Monocytes (%) (Auto) 11 % (0-9) 9 % (0-9) Eosinophils (%) (Auto) 4 % (0-3) 5 % (0-3) Basophils (%) (Auto) 1 % (0-3) 1 % (0-3) Neutrophils # (Auto) 2.5 x10^3uL (1.8-7.7) 2.2 x10^3uL (1.8-7.7) Lymphocytes # (Auto) 2.4 x10^3/uL (1.0-4.8) 2.8 x10^3/uL (1.0-4.8) Monocytes # (Auto) 0.6 x10^3/uL (0.0-1.1) 0.5 x10^3/uL (0.0-1.1) Eosinophils # (Auto) 0.2 x10^3/uL (0.0-0.7) 0.3 x10^3/uL (0.0-0.7) Basophils # (Auto) 0.0 x10^3/uL (0.0-0.2) 0.1 x10^3/uL (0.0-0.2) Prothrombin Time 13.7 SEC (11.7-14.0) Prothromb Time International Ratio 1.1 (0.8-1.1) D-Dimer (Dolly) < 0.27 ug/mlFEU Sodium Level 143 mmol/L (136-145) 143 mmol/L (136-145) Potassium Level 3.2 mmol/L (3.5-5.1) 4.0 mmol/L (3.5-5.1) Chloride Level 104 mmol/L (98-107) 108 mmol/L (98-107) Carbon Dioxide Level 28 mmol/L (21-32) 26 mmol/L (21-32) Anion Gap 11 (6-14) 9 (6-14) Blood Urea Nitrogen 7 mg/dL (7-20) 6 mg/dL (7-20) Creatinine 0.7 mg/dL (0.6-1.0) 0.7 mg/dL (0.6-1.0) Estimated GFR (Cockcroft-Gault) 93.6 93.6 BUN/Creatinine Ratio 10 (6-20) Glucose Level 96 mg/dL (70-99) 97 mg/dL (70-99) Calcium Level 9.6 mg/dL (8.5-10.1) 8.5 mg/dL (8.5-10.1) Magnesium Level 2.2 mg/dL (1.8-2.4) Total Bilirubin 0.4 mg/dL (0.2-1.0) Aspartate Amino Transf (AST/SGOT) 12 U/L (15-37) Alanine Aminotransferase (ALT/SGPT) 13 U/L (14-59) Alkaline Phosphatase 73 U/L (46-116) Creatine Kinase 46 U/L (26-192) Creatine Kinase MB (Mass) < 0.5 ng/mL (0.0-3.6) Creatine Kinase MB Relative Index % (0-4) Troponin I Quantitative < 0.017 ng/mL (0.000-0.055) < 0.017 ng/mL (0.000-0.055) DU-Unt-D-Type Natriuretic Peptide 58 pg/mL (0-124) Total Protein 8.5 g/dL (6.4-8.2) Albumin 4.6 g/dL (3.4-5.0) Albumin/Globulin Ratio 1.2 (1.0-1.7) Thyroid Stimulating Hormone (TSH) 15.469 uIU/mL (0.358-3.74) Urine Collection Type Unknown Urine Color Yellow Urine Clarity Clear Urine pH 7.0 Urine Specific [place] 1.010 Urine Protein Negative mg/dL (NEG-TRACE) Urine Glucose (UA) Negative mg/dL (NEG) Urine Ketones (Stick) Negative mg/dL (NEG) Urine Blood Small (NEG) Urine Nitrite Negative (NEG) Urine Bilirubin Negative (NEG) Urine Urobilinogen Dipstick 0.2 mg/dL (0.2 mg/dL) Urine Leukocyte Esterase Negative (NEG) Urine RBC Occ /HPF (0-2) Urine WBC 0 /HPF (0-4) Urine Squamous Epithelial Cells Few /LPF Urine Bacteria 0 /HPF (0-FEW) Urine Mucus Slight /LPF Urine Opiates Screen Neg (NEG) Urine Methadone Screen Neg (NEG) Urine Barbiturates Neg (NEG) Urine Phencyclidine Screen Neg (NEG) Urine Amphetamine/Methamphetamine Neg (NEG) Urine Benzodiazepines Screen Neg (NEG) Urine Cocaine Screen Neg (NEG) Urine Cannabinoids Screen Neg (NEG) Urine Ethyl Alcohol Neg (NEG) Bedside Urine HCG, Qualitative Hcg negative (Negative) Triglycerides Level 57 mg/dL (0-150) Cholesterol Level 122 mg/dL (0-200) LDL Cholesterol, Calculated 75 mg/dL (0-100) VLDL Cholesterol, Calculated 11 mg/dL (0-40) Non-HDL Cholesterol Calculated 86 mg/dL (0-129) HDL Cholesterol 36 mg/dL (40-60) Cholesterol/HDL Ratio 3.4 Free Thyroxine 0.81 ng/dL (0.76-1.46) Test 08/29/18 09:10 Troponin I Quantitative < 0.017 ng/mL (0.000-0.055) Free Triiodothyronine (T3) pg/mL 2.02 pg/mL (2.18-3.98) Comment Review of Relevant I have reviewed the following items nanci (where applicable) has been applied. Labs Laboratory Tests Test 08/28/18 20:05 08/28/18 20:25 08/28/18 20:28 08/29/18 02:04 White Blood Count 5.8 x10^3/uL (4.0-11.0) 5.8 x10^3/uL (4.0-11.0) Red Blood Count 4.04 x10^6/uL (3.50-5.40) 3.28 x10^6/uL (3.50-5.40) Hemoglobin 11.9 g/dL (12.0-15.5) 9.5 g/dL (12.0-15.5) Hematocrit 35.7 % (36.0-47.0) 28.8 % (36.0-47.0) Mean Corpuscular Volume 88 fL (79-100) 88 fL (79-100) Mean Corpuscular Hemoglobin 29 pg (25-35) 29 pg (25-35) Mean Corpuscular Hemoglobin Concent 33 g/dL (31-37) 33 g/dL (31-37) Red Cell Distribution Width 16.5 % (11.5-14.5) 16.5 % (11.5-14.5) Platelet Count 273 x10^3/uL (140-400) 204 x10^3/uL (140-400) Neutrophils (%) (Auto) 43 % (31-73) 38 % (31-73) Lymphocytes (%) (Auto) 42 % (24-48) 48 % (24-48) Monocytes (%) (Auto) 11 % (0-9) 9 % (0-9) Eosinophils (%) (Auto) 4 % (0-3) 5 % (0-3) Basophils (%) (Auto) 1 % (0-3) 1 % (0-3) Neutrophils # (Auto) 2.5 x10^3uL (1.8-7.7) 2.2 x10^3uL (1.8-7.7) Lymphocytes # (Auto) 2.4 x10^3/uL (1.0-4.8) 2.8 x10^3/uL (1.0-4.8) Monocytes # (Auto) 0.6 x10^3/uL (0.0-1.1) 0.5 x10^3/uL (0.0-1.1) Eosinophils # (Auto) 0.2 x10^3/uL (0.0-0.7) 0.3 x10^3/uL (0.0-0.7) Basophils # (Auto) 0.0 x10^3/uL (0.0-0.2) 0.1 x10^3/uL (0.0-0.2) Prothrombin Time 13.7 SEC (11.7-14.0) Prothromb Time International Ratio 1.1 (0.8-1.1) D-Dimer (Dolly) < 0.27 ug/mlFEU Sodium Level 143 mmol/L (136-145) 143 mmol/L (136-145) Potassium Level 3.2 mmol/L (3.5-5.1) 4.0 mmol/L (3.5-5.1) Chloride Level 104 mmol/L (98-107) 108 mmol/L (98-107) Carbon Dioxide Level 28 mmol/L (21-32) 26 mmol/L (21-32) Anion Gap 11 (6-14) 9 (6-14) Blood Urea Nitrogen 7 mg/dL (7-20) 6 mg/dL (7-20) Creatinine 0.7 mg/dL (0.6-1.0) 0.7 mg/dL (0.6-1.0) Estimated GFR (Cockcroft-Gault) 93.6 93.6 BUN/Creatinine Ratio 10 (6-20) Glucose Level 96 mg/dL (70-99) 97 mg/dL (70-99) Calcium Level 9.6 mg/dL (8.5-10.1) 8.5 mg/dL (8.5-10.1) Magnesium Level 2.2 mg/dL (1.8-2.4) Total Bilirubin 0.4 mg/dL (0.2-1.0) Aspartate Amino Transf (AST/SGOT) 12 U/L (15-37) Alanine Aminotransferase (ALT/SGPT) 13 U/L (14-59) Alkaline Phosphatase 73 U/L (46-116) Creatine Kinase 46 U/L (26-192) Creatine Kinase MB (Mass) < 0.5 ng/mL (0.0-3.6) Creatine Kinase MB Relative Index % (0-4) Troponin I Quantitative < 0.017 ng/mL (0.000-0.055) < 0.017 ng/mL (0.000-0.055) HD-Gfe-K-Type Natriuretic Peptide 58 pg/mL (0-124) Total Protein 8.5 g/dL (6.4-8.2) Albumin 4.6 g/dL (3.4-5.0) Albumin/Globulin Ratio 1.2 (1.0-1.7) Thyroid Stimulating Hormone (TSH) 15.469 uIU/mL (0.358-3.74) Urine Collection Type Unknown Urine Color Yellow Urine Clarity Clear Urine pH 7.0 Urine Specific [place] 1.010 Urine Protein Negative mg/dL (NEG-TRACE) Urine Glucose (UA) Negative mg/dL (NEG) Urine Ketones (Stick) Negative mg/dL (NEG) Urine Blood Small (NEG) Urine Nitrite Negative (NEG) Urine Bilirubin Negative (NEG) Urine Urobilinogen Dipstick 0.2 mg/dL (0.2 mg/dL) Urine Leukocyte Esterase Negative (NEG) Urine RBC Occ /HPF (0-2) Urine WBC 0 /HPF (0-4) Urine Squamous Epithelial Cells Few /LPF Urine Bacteria 0 /HPF (0-FEW) Urine Mucus Slight /LPF Urine Opiates Screen Neg (NEG) Urine Methadone Screen Neg (NEG) Urine Barbiturates Neg (NEG) Urine Phencyclidine Screen Neg (NEG) Urine Amphetamine/Methamphetamine Neg (NEG) Urine Benzodiazepines Screen Neg (NEG) Urine Cocaine Screen Neg (NEG) Urine Cannabinoids Screen Neg (NEG) Urine Ethyl Alcohol Neg (NEG) Bedside Urine HCG, Qualitative Hcg negative (Negative) Triglycerides Level 57 mg/dL (0-150) Cholesterol Level 122 mg/dL (0-200) LDL Cholesterol, Calculated 75 mg/dL (0-100) VLDL Cholesterol, Calculated 11 mg/dL (0-40) Non-HDL Cholesterol Calculated 86 mg/dL (0-129) HDL Cholesterol 36 mg/dL (40-60) Cholesterol/HDL Ratio 3.4 Free Thyroxine 0.81 ng/dL (0.76-1.46) Test 08/29/18 09:10 Troponin I Quantitative < 0.017 ng/mL (0.000-0.055) Free Triiodothyronine (T3) pg/mL 2.02 pg/mL (2.18-3.98) Laboratory Tests Test 08/28/18 20:05 08/28/18 20:25 08/28/18 20:28 08/29/18 02:04 White Blood Count 5.8 x10^3/uL (4.0-11.0) 5.8 x10^3/uL (4.0-11.0) Red Blood Count 4.04 x10^6/uL (3.50-5.40) 3.28 x10^6/uL (3.50-5.40) Hemoglobin 11.9 g/dL (12.0-15.5) 9.5 g/dL (12.0-15.5) Hematocrit 35.7 % (36.0-47.0) 28.8 % (36.0-47.0) Mean Corpuscular Volume 88 fL (79-100) 88 fL (79-100) Mean Corpuscular Hemoglobin 29 pg (25-35) 29 pg (25-35) Mean Corpuscular Hemoglobin Concent 33 g/dL (31-37) 33 g/dL (31-37) Red Cell Distribution Width 16.5 % (11.5-14.5) 16.5 % (11.5-14.5) Platelet Count 273 x10^3/uL (140-400) 204 x10^3/uL (140-400) Neutrophils (%) (Auto) 43 % (31-73) 38 % (31-73) Lymphocytes (%) (Auto) 42 % (24-48) 48 % (24-48) Monocytes (%) (Auto) 11 % (0-9) 9 % (0-9) Eosinophils (%) (Auto) 4 % (0-3) 5 % (0-3) Basophils (%) (Auto) 1 % (0-3) 1 % (0-3) Neutrophils # (Auto) 2.5 x10^3uL (1.8-7.7) 2.2 x10^3uL (1.8-7.7) Lymphocytes # (Auto) 2.4 x10^3/uL (1.0-4.8) 2.8 x10^3/uL (1.0-4.8) Monocytes # (Auto) 0.6 x10^3/uL (0.0-1.1) 0.5 x10^3/uL (0.0-1.1) Eosinophils # (Auto) 0.2 x10^3/uL (0.0-0.7) 0.3 x10^3/uL (0.0-0.7) Basophils # (Auto) 0.0 x10^3/uL (0.0-0.2) 0.1 x10^3/uL (0.0-0.2) Prothrombin Time 13.7 SEC (11.7-14.0) Prothromb Time International Ratio 1.1 (0.8-1.1) D-Dimer (Dloly) < 0.27 ug/mlFEU Sodium Level 143 mmol/L (136-145) 143 mmol/L (136-145) Potassium Level 3.2 mmol/L (3.5-5.1) 4.0 mmol/L (3.5-5.1) Chloride Level 104 mmol/L (98-107) 108 mmol/L (98-107) Carbon Dioxide Level 28 mmol/L (21-32) 26 mmol/L (21-32) Anion Gap 11 (6-14) 9 (6-14) Blood Urea Nitrogen 7 mg/dL (7-20) 6 mg/dL (7-20) Creatinine 0.7 mg/dL (0.6-1.0) 0.7 mg/dL (0.6-1.0) Estimated GFR (Cockcroft-Gault) 93.6 93.6 BUN/Creatinine Ratio 10 (6-20) Glucose Level 96 mg/dL (70-99) 97 mg/dL (70-99) Calcium Level 9.6 mg/dL (8.5-10.1) 8.5 mg/dL (8.5-10.1) Magnesium Level 2.2 mg/dL (1.8-2.4) Total Bilirubin 0.4 mg/dL (0.2-1.0) Aspartate Amino Transf (AST/SGOT) 12 U/L (15-37) Alanine Aminotransferase (ALT/SGPT) 13 U/L (14-59) Alkaline Phosphatase 73 U/L (46-116) Creatine Kinase 46 U/L (26-192) Creatine Kinase MB (Mass) < 0.5 ng/mL (0.0-3.6) Creatine Kinase MB Relative Index % (0-4) Troponin I Quantitative < 0.017 ng/mL (0.000-0.055) < 0.017 ng/mL (0.000-0.055) KS-Xju-K-Type Natriuretic Peptide 58 pg/mL (0-124) Total Protein 8.5 g/dL (6.4-8.2) Albumin 4.6 g/dL (3.4-5.0) Albumin/Globulin Ratio 1.2 (1.0-1.7) Thyroid Stimulating Hormone (TSH) 15.469 uIU/mL (0.358-3.74) Urine Collection Type Unknown Urine Color Yellow Urine Clarity Clear Urine pH 7.0 Urine Specific [place] 1.010 Urine Protein Negative mg/dL (NEG-TRACE) Urine Glucose (UA) Negative mg/dL (NEG) Urine Ketones (Stick) Negative mg/dL (NEG) Urine Blood Small (NEG) Urine Nitrite Negative (NEG) Urine Bilirubin Negative (NEG) Urine Urobilinogen Dipstick 0.2 mg/dL (0.2 mg/dL) Urine Leukocyte Esterase Negative (NEG) Urine RBC Occ /HPF (0-2) Urine WBC 0 /HPF (0-4) Urine Squamous Epithelial Cells Few /LPF Urine Bacteria 0 /HPF (0-FEW) Urine Mucus Slight /LPF Urine Opiates Screen Neg (NEG) Urine Methadone Screen Neg (NEG) Urine Barbiturates Neg (NEG) Urine Phencyclidine Screen Neg (NEG) Urine Amphetamine/Methamphetamine Neg (NEG) Urine Benzodiazepines Screen Neg (NEG) Urine Cocaine Screen Neg (NEG) Urine Cannabinoids Screen Neg (NEG) Urine Ethyl Alcohol Neg (NEG) Bedside Urine HCG, Qualitative Hcg negative (Negative) Triglycerides Level 57 mg/dL (0-150) Cholesterol Level 122 mg/dL (0-200) LDL Cholesterol, Calculated 75 mg/dL (0-100) VLDL Cholesterol, Calculated 11 mg/dL (0-40) Non-HDL Cholesterol Calculated 86 mg/dL (0-129) HDL Cholesterol 36 mg/dL (40-60) Cholesterol/HDL Ratio 3.4 Free Thyroxine 0.81 ng/dL (0.76-1.46) Test 08/29/18 09:10 Troponin I Quantitative < 0.017 ng/mL (0.000-0.055) Free Triiodothyronine (T3) pg/mL 2.02 pg/mL (2.18-3.98) Medications Current Medications Aspirin (Eduardo Aspirin) 325 mg 1X ONCE PO Last administered on 08/28/18at 20:45 ; Start 08/28/18 at 20:15; Stop 08/28/18 at 20:22; Status DC Potassium Chloride (Klor-Con) 40 meq 1X ONCE PO Last administered on 08/28/18at 21:34; Start 08/28/18 at 21:15; Stop 08/28/18 at 21:16; Status DC Meclizine HCl (Antivert) 25 mg 1X ONCE PO Last administered on 08/28/18at 21:47 ; Start 08/28/18 at 21:45; Stop 08/28/18 at 21:46; Status DC Ondansetron HCl (Zofran) 4 mg PRN Q8HRS PRN IV NAUSEA/VOMITING; Start 08/28/18 at 22:15; Stop 08/29/18 at 22:14 Fentanyl Citrate (Fentanyl 2ml Vial) 50 mcg PRN Q1HR PRN IV PAIN; Start at 22:15; Stop 08/29/18 at 22:14 Nitroglycerin (Nitrostat) 0.4 mg PRN Q5MIN PRN SL CHEST PAIN; Start 08/28/18 at 22:15; Stop 08/29/18 at 22:14 Sodium Chloride 1,000 ml @ 75 mls/hr 1X ONCE IV Last administered on at 00:08; Start 08/28/18 at 22:15; Stop 08/29/18 at 11:34; Status DC Levothyroxine Sodium (Synthroid) 125 mcg DAILY06 PO Last administered on at 05:33; Start 08/29/18 at 06:00 Ibuprofen (Motrin) 600 mg PRN TID PRN PO INFLAMMATION Last administered on at 09:14; Start 08/29/18 at 09:15 Active Scripts Active Zofran Odt (Ondansetron) 4 Mg Tab.rapdis 4 Mg PO BID PRN 5 Days Naprosyn (Naproxen) 500 Mg Tablet 1 Tab PO BID Lomotil Tablet (Diphenoxylate Hcl/Atropine) 1 Each Tablet 1 Tab PO QID Bentyl (Dicyclomine Hcl) 10 Mg Capsule 1 Cap PO TID Reported Zofran (Ondansetron Hcl) 4 Mg Tablet 1 Tab PO PRN Q4HRS PRN Xanax (Alprazolam) 0.5 Mg Tablet 0.5 Mg PO TID PRN PRN Levothyroxine Sodium 100 Mcg Tablet 1 Tab PO DAILY Vitals/I & O Vital Sign - Last 24 Hours 08/28/18 08/28/18 08/28/18 08/28/18 19:52 20:28 20:58 21:28 Temp 98.4 98.4 Pulse 69 60 64 60 Resp 16 16 16 16 B/P (MAP) 121/78 (92) 105/69 (81) 103/68 (80) 103/69 (80) Pulse Ox 100 99 98 98 O2 Delivery Room Air Room Air Room Air Room Air 08/28/18 08/28/18 08/28/18 08/28/18 21:58 22:28 22:58 23:40 Pulse 60 62 64 Resp 16 14 16 B/P (MAP) 103/74 (84) 102/65 (77) 97/60 (72) Pulse Ox 99 100 99 O2 Delivery Room Air Room Air Room Air Room Air 08/29/18 08/29/18 08/29/18 08/29/18 00:02 02:56 07:30 08:00 Temp 97.9 98.0 98.0 97.9 98.0 98.0 Pulse 59 63 59 Resp 20 18 14 B/P (MAP) 115/56 (75) 112/61 (78) 108/53 (71) Pulse Ox 98 98 97 O2 Delivery Room Air Room Air Room Air Room Air 08/29/18 08/29/18 08/29/18 11:42 11:43 11:43 Pulse 64 79 62 B/P (MAP) 99/59 (72) 106/55 (72) 100/62 (75) Intake and Output 08/28/18 08/28/18 08/29/18 15:00 23:00 07:00 Intake Total 0 ml Balance 0 ml STEPHAN DELGADO MD Aug 29, 2018 12:22
[2018-08-29] MEDS ORDERED: AMIT25TA PO (13:45)
[2018-08-29] MEDS ORDERED: SUMA50TA4 PO (13:45)
[2018-08-29 14:29] VITALS: BP 99/58
[2018-08-29] MEDS ORDERED: FAMOTIDINE 20 MG TABLET. PO ONE (14:30)
--- NOTE | 2018-08-29 15:00 | NUR ---
Paged and spoke to both sub-specialties. Okay for pt to discharge home.
--- NOTE | 2018-08-29 15:30 | NUR ---
Discharge Note: GUERLINE ELLISON [address] Discharge instructions and discharge home medications reviewed with Patient and a copy given. All questions have been answered and understanding verbalized. The following instructions and handouts were given: chest pain, dizziness, and hypothyroidism Discontinued lines and drains: Peripheral IV intact. Patient discharged to Home or Self Care with Spouse via Ambulated
--- NOTE | 2018-08-29 16:38 | PDOC2 ---
NEUROLOGY CONSULT Date of Admission Date of Admission DATE: 08/29/18 TIME: 16:23 Reason for Consult Reason for Consult: IMPRESSION: Headache. Dizziness. Near syncope. Chest pain. Hypothyroidism, TSH 15.5 Depression. RECOMMENDATIONS/PLAN: HCT W/O contrast performed, negative. Lab: see orders. Treat hypothyroidism. EEG can be obtained as outpatient base. FU with Neurology if has further headaches. FU with PCP. HISTORY OF PRESENT ILLNESS This is a 38-y-old female patient was was admitted due to complains of chest pain. Reports no SOA but still having some dizzy spells but more so with vertigo. She reported her she had intermittent dull headaches and dizziness, but her headaches and dizziness were not obvious now. No nausea or vomiting. She was told that she had [place] from last year after seeing her ENT. She had hypothyroidism but stopped taking her thyroid medication for about 2-3 weeks and just resumed it now. No focalized sensory or motor deficits. PAST MEDICAL HISTORY Cardiovascular: Syncope Hepatobiliary: Cholelithiasis Psych: Depression Endocrine: Hypothyroidism PAST SURGICAL HISTORY Cholecystectomy FAMILY HISTORY Hypertension SOCIAL HISTORY Smoke: <1 pack per day ALCOHOL: none Drugs: None Lives: with Family ALLERGIES Coded Allergies: Penicillins (Verified Allergy, Severe, HIVES/ANAPHYLAXIS, 06/12/17) erythromycin base (Verified Allergy, Severe, HIVES/ANAPHYLAXIS, 06/12/17) hydromorphone (Verified Allergy, Mild, DELUSIONAL, 06/12/17) MEDICATIONS: Refer to MAR REVIEW OF SYSTEMS: Constitutional: No malnutrition, weight loss, cachexia. Head: No traumatic brain or head injury. Skin: No edema, or rash. Ear: Vertigo. Eyes: No vision loss or color blindness. Nose: No bleeding or purulent discharges. Hearing: No hearing decrease. Neck: No injury. Breast: No history of cancer, masses,or discharges. Cardiac: Chest pain. Pulmonary: No COPD. GI: No GI ulcer, GI bleeding. Urinary/genital: UTI. Endocrinologic: Hypothyroidism. Skeletomuscular: No muscular atrophy, deformity. Neurological: see HP. Psychiatric: Denies drug use/abuse. Otherwise, not -uaarm review of systems. PHYSICAL EXAMINATION: General appearance is in no acute distress. HEENT: Normocephalic and nontraumatic. Eyes, nose, ears, and throat are unremarkable. Neck is supple. No lymphadenopathy. No bruits are heard over the carotid artery. No crepitus. Cardiovascular: S1, S2, regular rate and rhythm. Pulmonary: Clear to auscultation bilaterally. Abdomen: Bowel sounds are positive. Abdomen is soft, nontender, and nondistended. Extremities: No rash, lesions, or edema. No restriction of range of motion NEUROLOGICAL EXAMINATION: Alert Oriented to time, place and person. PERRL. EOMI. CN: no focal findings. Muscle tone: within normal. Muscle strength: 5 DTR: 2 Plantar reflex: Flexor response bilaterally Gait: not examined in bed. Sensory exam: no abnormal findings. No cerebellar signs elicited. F-T-N test accurate. Current Medications Current Medications Current Medications Aspirin (Eduardo Aspirin) 325 mg 1X ONCE PO Last administered on 08/28/18at 20:45 ; Start 08/28/18 at 20:15; Stop 08/28/18 at 20:22; Status DC Potassium Chloride (Klor-Con) 40 meq 1X ONCE PO Last administered on 08/28/18at 21:34; Start 08/28/18 at 21:15; Stop 08/28/18 at 21:16; Status DC Meclizine HCl (Antivert) 25 mg 1X ONCE PO Last administered on 08/28/18at 21:47 ; Start 08/28/18 at 21:45; Stop 08/28/18 at 21:46; Status DC Ondansetron HCl (Zofran) 4 mg PRN Q8HRS PRN IV NAUSEA/VOMITING; Start 08/28/18 at 22:15; Stop 08/29/18 at 16:07; Status DC Fentanyl Citrate (Fentanyl 2ml Vial) 50 mcg PRN Q1HR PRN IV PAIN; Start at 22:15; Stop 08/29/18 at 16:07; Status DC Nitroglycerin (Nitrostat) 0.4 mg PRN Q5MIN PRN SL CHEST PAIN; Start 08/28/18 at 22:15; Stop 08/29/18 at 16:07; Status DC Sodium Chloride 1,000 ml @ 75 mls/hr 1X ONCE IV Last administered on at 00:08; Start 08/28/18 at 22:15; Stop 08/29/18 at 11:34; Status DC Levothyroxine Sodium (Synthroid) 125 mcg DAILY06 PO Last administered on at 05:33; Start 08/29/18 at 06:00; Stop 08/29/18 at 16:07; Status DC Ibuprofen (Motrin) 600 mg PRN TID PRN PO INFLAMMATION Last administered on at 09:14; Start 08/29/18 at 09:15; Stop 08/29/18 at 16:07; Status DC Famotidine (Pepcid) 20 mg QHS PO ; Start 08/29/18 at 21:00; Stop 08/29/18 at 21:00 ; Status DC Famotidine (Pepcid) 20 mg 1X ONCE PO Last administered on 08/29/18at 14:52; Start 08/29/18 at 14:30; Stop 08/29/18 at 14:31; Status DC Active Scripts Active Sumatriptan Succinate 50 Mg Tablet 50 Mg PO ONCE PRN 10 Days may take 2 if pain does not resolve after 1hour. Amitriptyline Hcl 25 Mg Tablet 1 Tab PO QHS 30 Days Zofran Odt (Ondansetron) 4 Mg Tab.rapdis 4 Mg PO BID PRN 5 Days Naprosyn (Naproxen) 500 Mg Tablet 1 Tab PO BID Lomotil Tablet (Diphenoxylate Hcl/Atropine) 1 Each Tablet 1 Tab PO QID Bentyl (Dicyclomine Hcl) 10 Mg Capsule 1 Cap PO TID Reported Zofran (Ondansetron Hcl) 4 Mg Tablet 1 Tab PO PRN Q4HRS PRN Xanax (Alprazolam) 0.5 Mg Tablet 0.5 Mg PO TID PRN PRN Levothyroxine Sodium 100 Mcg Tablet 1 Tab PO DAILY Allergies Allergies: Allergies Coded Allergies Type Severity Reaction Last Updated Verified Penicillins Allergy Severe HIVES/ANAPHYLAXIS 06/12/17 Yes erythromycin base Allergy Severe HIVES/ANAPHYLAXIS 06/12/17 Yes hydromorphone Allergy Mild DELUSIONAL 06/12/17 Yes ROS Review of System The patient denies any associated fevers, chills, headache, ear pain, rhinorrhea , sore throat, stiff neck, productive cough, chest pain, shortness of breath, back or flank pain, abdominal pain, nausea, vomiting, diarrhea, constipation, dysuria, rash, numbness, weakness, tingling, incontinence, difficulty ambulating, or diaphoresis. Physical Exam Physical Exam General: Well developed, well nourished, no acute distress, well appearing HEENT: Pupils equally round and reactive to light, EOMI, no discharge, normal conjunctiva Neck: Supple, no nuchal rigidity, no JVD, trachea midline, no tenderness Cardiac: RRR, no murmurs, no gallops, no rubs Chest/Lungs: CTAB, no wheeze, no rhonchi, no crackles Abdomen: soft, non-distended, no guarding, no peritoneal signs, non-tender Back: No tenderness Extremities: no edema, pulses intact, non-tender,capillary refill <3 sec bilateral upper and lower extremities, Neuro: Alert and oriented x 4, no focal deficits, normal speech Vitals Vitals: Vital Signs Date Time Temp Pulse Resp B/P (MAP) Pulse Ox O2 Delivery O2 Flow Rate FiO2 08/29/18 14:29 97.9 59 18 99/58 (72) 97 Room Air 97.9 Labs Labs Laboratory Tests Test 08/28/18 20:05 08/28/18 20:25 08/28/18 20:28 08/29/18 02:04 White Blood Count 5.8 x10^3/uL (4.0-11.0) 5.8 x10^3/uL (4.0-11.0) Red Blood Count 4.04 x10^6/uL (3.50-5.40) 3.28 x10^6/uL (3.50-5.40) Hemoglobin 11.9 g/dL (12.0-15.5) 9.5 g/dL (12.0-15.5) Hematocrit 35.7 % (36.0-47.0) 28.8 % (36.0-47.0) Mean Corpuscular Volume 88 fL (79-100) 88 fL (79-100) Mean Corpuscular Hemoglobin 29 pg (25-35) 29 pg (25-35) Mean Corpuscular Hemoglobin Concent 33 g/dL (31-37) 33 g/dL (31-37) Red Cell Distribution Width 16.5 % (11.5-14.5) 16.5 % (11.5-14.5) Platelet Count 273 x10^3/uL (140-400) 204 x10^3/uL (140-400) Neutrophils (%) (Auto) 43 % (31-73) 38 % (31-73) Lymphocytes (%) (Auto) 42 % (24-48) 48 % (24-48) Monocytes (%) (Auto) 11 % (0-9) 9 % (0-9) Eosinophils (%) (Auto) 4 % (0-3) 5 % (0-3) Basophils (%) (Auto) 1 % (0-3) 1 % (0-3) Neutrophils # (Auto) 2.5 x10^3uL (1.8-7.7) 2.2 x10^3uL (1.8-7.7) Lymphocytes # (Auto) 2.4 x10^3/uL (1.0-4.8) 2.8 x10^3/uL (1.0-4.8) Monocytes # (Auto) 0.6 x10^3/uL (0.0-1.1) 0.5 x10^3/uL (0.0-1.1) Eosinophils # (Auto) 0.2 x10^3/uL (0.0-0.7) 0.3 x10^3/uL (0.0-0.7) Basophils # (Auto) 0.0 x10^3/uL (0.0-0.2) 0.1 x10^3/uL (0.0-0.2) Prothrombin Time 13.7 SEC (11.7-14.0) Prothromb Time International Ratio 1.1 (0.8-1.1) D-Dimer (Dolly) < 0.27 ug/mlFEU Sodium Level 143 mmol/L (136-145) 143 mmol/L (136-145) Potassium Level 3.2 mmol/L (3.5-5.1) 4.0 mmol/L (3.5-5.1) Chloride Level 104 mmol/L (98-107) 108 mmol/L (98-107) Carbon Dioxide Level 28 mmol/L (21-32) 26 mmol/L (21-32) Anion Gap 11 (6-14) 9 (6-14) Blood Urea Nitrogen 7 mg/dL (7-20) 6 mg/dL (7-20) Creatinine 0.7 mg/dL (0.6-1.0) 0.7 mg/dL (0.6-1.0) Estimated GFR (Cockcroft-Gault) 93.6 93.6 BUN/Creatinine Ratio 10 (6-20) Glucose Level 96 mg/dL (70-99) 97 mg/dL (70-99) Calcium Level 9.6 mg/dL (8.5-10.1) 8.5 mg/dL (8.5-10.1) Magnesium Level 2.2 mg/dL (1.8-2.4) Total Bilirubin 0.4 mg/dL (0.2-1.0) Aspartate Amino Transf (AST/SGOT) 12 U/L (15-37) Alanine Aminotransferase (ALT/SGPT) 13 U/L (14-59) Alkaline Phosphatase 73 U/L (46-116) Creatine Kinase 46 U/L (26-192) Creatine Kinase MB (Mass) < 0.5 ng/mL (0.0-3.6) Creatine Kinase MB Relative Index % (0-4) Troponin I Quantitative < 0.017 ng/mL (0.000-0.055) < 0.017 ng/mL (0.000-0.055) SR-Lyf-U-Type Natriuretic Peptide 58 pg/mL (0-124) Total Protein 8.5 g/dL (6.4-8.2) Albumin 4.6 g/dL (3.4-5.0) Albumin/Globulin Ratio 1.2 (1.0-1.7) Thyroid Stimulating Hormone (TSH) 15.469 uIU/mL (0.358-3.74) Urine Collection Type Unknown Urine Color Yellow Urine Clarity Clear Urine pH 7.0 Urine Specific Clayton 1.010 Urine Protein Negative mg/dL (NEG-TRACE) Urine Glucose (UA) Negative mg/dL (NEG) Urine Ketones (Stick) Negative mg/dL (NEG) Urine Blood Small (NEG) Urine Nitrite Negative (NEG) Urine Bilirubin Negative (NEG) Urine Urobilinogen Dipstick 0.2 mg/dL (0.2 mg/dL) Urine Leukocyte Esterase Negative (NEG) Urine RBC Occ /HPF (0-2) Urine WBC 0 /HPF (0-4) Urine Squamous Epithelial Cells Few /LPF Urine Bacteria 0 /HPF (0-FEW) Urine Mucus Slight /LPF Urine Opiates Screen Neg (NEG) Urine Methadone Screen Neg (NEG) Urine Barbiturates Neg (NEG) Urine Phencyclidine Screen Neg (NEG) Urine Amphetamine/Methamphetamine Neg (NEG) Urine Benzodiazepines Screen Neg (NEG) Urine Cocaine Screen Neg (NEG) Urine Cannabinoids Screen Neg (NEG) Urine Ethyl Alcohol Neg (NEG) Bedside Urine HCG, Qualitative Hcg negative (Negative) Triglycerides Level 57 mg/dL (0-150) Cholesterol Level 122 mg/dL (0-200) LDL Cholesterol, Calculated 75 mg/dL (0-100) VLDL Cholesterol, Calculated 11 mg/dL (0-40) Non-HDL Cholesterol Calculated 86 mg/dL (0-129) HDL Cholesterol 36 mg/dL (40-60) Cholesterol/HDL Ratio 3.4 Free Thyroxine 0.81 ng/dL (0.76-1.46) Test 08/29/18 09:10 Troponin I Quantitative < 0.017 ng/mL (0.000-0.055) Free Triiodothyronine (T3) pg/mL 2.02 pg/mL (2.18-3.98) Laboratory Tests Test 08/28/18 20:05 08/28/18 20:25 08/28/18 20:28 08/29/18 02:04 White Blood Count 5.8 x10^3/uL (4.0-11.0) 5.8 x10^3/uL (4.0-11.0) Red Blood Count 4.04 x10^6/uL (3.50-5.40) 3.28 x10^6/uL (3.50-5.40) Hemoglobin 11.9 g/dL (12.0-15.5) 9.5 g/dL (12.0-15.5) Hematocrit 35.7 % (36.0-47.0) 28.8 % (36.0-47.0) Mean Corpuscular Volume 88 fL (79-100) 88 fL (79-100) Mean Corpuscular Hemoglobin 29 pg (25-35) 29 pg (25-35) Mean Corpuscular Hemoglobin Concent 33 g/dL (31-37) 33 g/dL (31-37) Red Cell Distribution Width 16.5 % (11.5-14.5) 16.5 % (11.5-14.5) Platelet Count 273 x10^3/uL (140-400) 204 x10^3/uL (140-400) Neutrophils (%) (Auto) 43 % (31-73) 38 % (31-73) Lymphocytes (%) (Auto) 42 % (24-48) 48 % (24-48) Monocytes (%) (Auto) 11 % (0-9) 9 % (0-9) Eosinophils (%) (Auto) 4 % (0-3) 5 % (0-3) Basophils (%) (Auto) 1 % (0-3) 1 % (0-3) Neutrophils # (Auto) 2.5 x10^3uL (1.8-7.7) 2.2 x10^3uL (1.8-7.7) Lymphocytes # (Auto) 2.4 x10^3/uL (1.0-4.8) 2.8 x10^3/uL (1.0-4.8) Monocytes # (Auto) 0.6 x10^3/uL (0.0-1.1) 0.5 x10^3/uL (0.0-1.1) Eosinophils # (Auto) 0.2 x10^3/uL (0.0-0.7) 0.3 x10^3/uL (0.0-0.7) Basophils # (Auto) 0.0 x10^3/uL (0.0-0.2) 0.1 x10^3/uL (0.0-0.2) Prothrombin Time 13.7 SEC (11.7-14.0) Prothromb Time International Ratio 1.1 (0.8-1.1) D-Dimer (Dolly) < 0.27 ug/mlFEU Sodium Level 143 mmol/L (136-145) 143 mmol/L (136-145) Potassium Level 3.2 mmol/L (3.5-5.1) 4.0 mmol/L (3.5-5.1) Chloride Level 104 mmol/L (98-107) 108 mmol/L (98-107) Carbon Dioxide Level 28 mmol/L (21-32) 26 mmol/L (21-32) Anion Gap 11 (6-14) 9 (6-14) Blood Urea Nitrogen 7 mg/dL (7-20) 6 mg/dL (7-20) Creatinine 0.7 mg/dL (0.6-1.0) 0.7 mg/dL (0.6-1.0) Estimated GFR (Cockcroft-Gault) 93.6 93.6 BUN/Creatinine Ratio 10 (6-20) Glucose Level 96 mg/dL (70-99) 97 mg/dL (70-99) Calcium Level 9.6 mg/dL (8.5-10.1) 8.5 mg/dL (8.5-10.1) Magnesium Level 2.2 mg/dL (1.8-2.4) Total Bilirubin 0.4 mg/dL (0.2-1.0) Aspartate Amino Transf (AST/SGOT) 12 U/L (15-37) Alanine Aminotransferase (ALT/SGPT) 13 U/L (14-59) Alkaline Phosphatase 73 U/L (46-116) Creatine Kinase 46 U/L (26-192) Creatine Kinase MB (Mass) < 0.5 ng/mL (0.0-3.6) Creatine Kinase MB Relative Index % (0-4) Troponin I Quantitative < 0.017 ng/mL (0.000-0.055) < 0.017 ng/mL (0.000-0.055) GT-Bdg-Q-Type Natriuretic Peptide 58 pg/mL (0-124) Total Protein 8.5 g/dL (6.4-8.2) Albumin 4.6 g/dL (3.4-5.0) Albumin/Globulin Ratio 1.2 (1.0-1.7) Thyroid Stimulating Hormone (TSH) 15.469 uIU/mL (0.358-3.74) Urine Collection Type Unknown Urine Color Yellow Urine Clarity Clear Urine pH 7.0 Urine Specific Clayton 1.010 Urine Protein Negative mg/dL (NEG-TRACE) Urine Glucose (UA) Negative mg/dL (NEG) Urine Ketones (Stick) Negative mg/dL (NEG) Urine Blood Small (NEG) Urine Nitrite Negative (NEG) Urine Bilirubin Negative (NEG) Urine Urobilinogen Dipstick 0.2 mg/dL (0.2 mg/dL) Urine Leukocyte Esterase Negative (NEG) Urine RBC Occ /HPF (0-2) Urine WBC 0 /HPF (0-4) Urine Squamous Epithelial Cells Few /LPF Urine Bacteria 0 /HPF (0-FEW) Urine Mucus Slight /LPF Urine Opiates Screen Neg (NEG) Urine Methadone Screen Neg (NEG) Urine Barbiturates Neg (NEG) Urine Phencyclidine Screen Neg (NEG) Urine Amphetamine/Methamphetamine Neg (NEG) Urine Benzodiazepines Screen Neg (NEG) Urine Cocaine Screen Neg (NEG) Urine Cannabinoids Screen Neg (NEG) Urine Ethyl Alcohol Neg (NEG) Bedside Urine HCG, Qualitative Hcg negative (Negative) Triglycerides Level 57 mg/dL (0-150) Cholesterol Level 122 mg/dL (0-200) LDL Cholesterol, Calculated 75 mg/dL (0-100) VLDL Cholesterol, Calculated 11 mg/dL (0-40) Non-HDL Cholesterol Calculated 86 mg/dL (0-129) HDL Cholesterol 36 mg/dL (40-60) Cholesterol/HDL Ratio 3.4 Free Thyroxine 0.81 ng/dL (0.76-1.46) Test 08/29/18 09:10 Troponin I Quantitative < 0.017 ng/mL (0.000-0.055) Free Triiodothyronine (T3) pg/mL 2.02 pg/mL (2.18-3.98) MOR LOPEZ MD Aug 29, 2018 16:38
[2018-08-29] MEDS ORDERED: FAMOTIDINE 20 MG TABLET. PO SCH (21:00)
== END 2018-08-29 15:30 | disposition home or self-care (01) | DRG 313 ==
LOC: ER 19:51 → 2 SOUTH 21:28
PROVIDERS: ADMIT Internal Medicine; ATTEND Internal Medicine
DX: R07.89 Other chest pain (principal); D64.9 Anemia, unspecified; F41.9 Anxiety disorder, unspecified; E03.9 Hypothyroidism, unspecified; F17.210 Nicotine dependence, cigarettes, uncomplicated; G89.29 Other chronic pain; F32.9 Major depressive disorder, single episode, unspecified; Z82.49 Family history of ischemic heart disease and other diseases of the circulatory system; Z91.19 Patient's noncompliance with other medical treatment and regimen; Z90.49 Acquired absence of other specified parts of digestive tract; Z88.1 Allergy status to other antibiotic agents; Z88.5 Allergy status to narcotic agent; Z88.0 Allergy status to penicillin
CPT/HCPCS: 36415; 70450; 71045; 80048; 80053; 80061; 80307; 81001; 81025; 82553; 83735; 83880; 84439; 84443; 84481; 84484; 85025; 85379; 85610; 93005; 93306; J7030; J8597; 99285-25

== ENCOUNTER → 2018-09-08 | Outpatient (CLI) | payer OTHER ==
[2018-08-29 14:29] VITALS: BP 99/58
[~2018-09-08] MED LIST changes: +ALPR0.5T PO; +AMIT25TA PO; +LEVO100T5 PO; +ONDA4TAB7 PO; +SUMA50TA4 PO
--- NOTE | 2018-09-11 12:17 | EEG ---
DATE OF SERVICE: 09/08/2018 ELECTROENCEPHALOGRAM NUMBER: [id number]. OBJECTIVE: This is a 38-year-old female patient with history of syncope or seizure-like episodes. EEG was requested to evaluate cerebral activity. METHODS: Twenty electrodes were applied according to the international 10-20 electrode placement system. EKG monitoring, hyperventilation, intermittent photic stimulation, monopolar and bipolar montages are routinely utilized. The record was obtained on a digital system with video monitoring. FINDINGS: 1. Background: The patient was recorded in the awake and drowsy states. No actual sleep state was recorded. The overall background amplitude is 10-20 microvolts. A posterior dominant rhythm of 8-9 Hz is observed. 2. Abnormalities: No specific epileptiform discharge or electrographic seizure is seen. No focal or diffuse slowing. 3. Activation: Hyperventilation was performed with good efforts and normal response. Intermittent photic stimulation was performed with photic driving. No specific epileptiform discharge or electrographic seizure induced by hyperventilation or intermittent photic stimulation. IMPRESSION: This electroencephalogram is within the normal limits of the study for the awake and drowsy states. No actual sleep state was recorded. No focal, lateralizing, specific epileptiform discharge, or electrographic seizure is seen. MOR LOPEZ MD DR: ZENA/amanda JOB#: [id number] / [id number] PAM
== END | disposition home or self-care (01) ==
LOC: RT 08:57
PROVIDERS: ATTEND Psychiatry & Neurology Neurology
DX: Z86.73 Personal history of transient ischemic attack (TIA), and cerebral infarction without residual deficits (principal); Z86.69 Personal history of other diseases of the nervous system and sense organs
CPT/HCPCS: 95816

== ENCOUNTER → 2019-01-12 | Outpatient (CLI) | payer OTHER ==
[~2019-01-12] MED LIST changes: +REGADENOSON 0.4 MG/5 ML DISP.SYRIN. IV ONE
--- NOTE | 2019-01-12 13:54 | RAD ---
MR#: [id number] Date of Study: 01/12/2019 Ordering Physician: MARIA LUZ MARTINS Referring Physician: JAMIL SPARKS Tech: ROSA MARIA Villa APPROVED REPORT Test Type: Pharmacological Stress Nurse/Tech: Radha ROSARIO Test Indications: CP Cardiac History: See EMR Medications: See EMR Medical History: Smoker Resting ECG: NSR Resting Heart Rate: 61 bpm Resting Blood Pressure: 99/63mmHg Pretest Chest Pain: No chest pain Nurse/Tech Notes Lungs CTA; Heart tones regular. Consent: The procedure was explained to the patient in lay terms. Informed consent was witnessed. Samuel eout was entered into [employer]. History and Stress Test performed by RT David (Rubin) (N) Pharm. Details Pharmacologic stress testing was performed using 0.4mg per 5ml of regadenoson given intravenously ove r 7-10 seconds. Stress Symptoms Nausea and Dyspnea POST EXERCISE Reason for Termination: Infusion complete Max HR: 142 bpm Max Blood Pressure: 119/67mmHg Blood Pressure response to exercise: Normal blood pressure response during stress. Chest Pain: No. Arrhythmia: No. ST Change: No. INTERPRETATION Stress EKG Conclusion: No evidence of stress induced EKG changes. Imaging Protocol IMAGE PROTOCOL: Rest Tc-99m/stress Tc-99m 1 day Rest: Stress: Viability: Radiopharm.Tc99m [id number] Sestamibi [id number] 32mCi Duration 15min. 10min. Img Date 01/12/2019 01/12/2019 Inj-Img [id number]. 60min. Rest Admin Site:IV - Right AntecubitalAdministrator:ROSA MARIA Villa Stress Admin Site: IV - Right AntecubitalAdministrator: RT David (Rubin)(N) STRESS DATA End Diast. Vol.89.0mlAv. Heart Rate65.0bpm End Syst. Vol.27.0mlCO Index BSA0.0L/min Myocardial Ijqq023.0gEject. Ywvynmwc11.0% Stress Rates Pk. Fill Rate2.86EDV/secLVtime Pk. Fill 240.69msec Pk. Empty Rate3.45ESV/secLVtime Pk. Lczld998.26msec 1/3 Pk. Fill1.39EDV/sec Stress Scores Regional WT0.00Summed WT0.00 Regional WM0.00Summed WM1.00 The rest and stress images show normal perfusion, normal contraction and thickening. LV Perf. Quant 17 Seg. SSS0.00 17 Seg. SRS3.00 17 Seg. SDS0.00 Stress Defect Extent (% LAD)0.00Rest Defect Extent (% LAD)2.50Rev. Defect Extent (% LAD)0.00 Stress Defect Extent (% LCX) 0.00Rest Defect Extent (% LCX)5.00Rev. Defect Extent (% LCX)0.00 Stress Defect Extent (% RCA)0.00Rest Defect Extent (% RCA)3.30Rev. Defect Extent (% RCA)0.00 Stress Defect Extent (% SHI)0.00Rest Defect Extent (% SHI)6.10Rev. Defect Extent (% SHI)0.00 Other Information Quality:Good Risk Assessment: Low Risk Conclusion 1. No evidence of EKG changes with stress testing. 2. Normal perfusion at stress/rest. 3. Low risk study. 4. EF > 60%. Signed by : Dalton Carter, Electronically Approved : 01/12/2019 13:53:55
== END | disposition home or self-care (01) ==
LOC: NM 08:47
PROVIDERS: ATTEND Internal Medicine Cardiovascular Disease
DX: R07.9 Chest pain, unspecified (principal); R06.00 Dyspnea, unspecified; R11.0 Nausea; Z87.891 Personal history of nicotine dependence
CPT/HCPCS: 78452; 93017; A9500; J2785

== ENCOUNTER 2019-02-26 12:26 | Emergency (ER) | payer OTHER ==
[~2019-02-26] VITALS: Ht 175.3 cm; Wt 65.8 kg
[~2019-02-26 12:26] MED LIST changes: -REGADENOSON 0.4 MG/5 ML DISP.SYRIN. IV ONE
[2019-02-26] MEDS ORDERED: IV NORMAL SALINE 1000ML BAG 1,000 ML IV SCH (13:36)
[2019-02-26 13:58] LABS: BILIRUBIN,URINE NEGATIVE (NEG); CLARITY,URINE CLEAR; COLOR,URINE YELLOW; NITRITE,URINE NEGATIVE (NEG); PH,URINE 8.5; PROTEIN,URINE NEGATIVE (NEG-TRACE); UROBILINOGEN,URINE 0.2 mg/dL (0.2 mg/dL)
[2019-02-26] MEDS ORDERED: ONDANSETRON PF 4 MG/2 ML VIAL. IV ONE (14:00)
[2019-02-26 14:03] LABS: BARBITURATES NEG (NEG); BENZODIAZEPINES NEG (NEG); CANNABINOIDS NEG (NEG); COCAINE NEG (NEG); METHADONE NEG (NEG); OPIATES NEG (NEG); PHENCYCLIDINE NEG (NEG)
[2019-02-26 14:05] LABS: AMPHETAMINE/METHAMPHETAMINE NEG (NEG)
[2019-02-26 14:06] LABS: BACTERIA,URINE MODERATE /HPF (0-FEW); RBC,URINE OCC /HPF (0-2); SQUAMOUS EPITHELIAL CELL,UR MOD /LPF; WBC,URINE RARE /HPF (0-4)
[2019-02-26] MEDS ORDERED: CONTRAST GIVEN. MC PRN (14:15)
[2019-02-26] MEDS ORDERED: IOHEXOL 300 MG/ML 100ML VIAL. IV ONE (14:15)
[2019-02-26 14:29] LABS: BASO % 1 % (0-3); EOS # 0.1 x10^3/uL (0.0-0.7); EOS % 1 % (0-3); HEMATOCRIT 30.7 % (36.0-47.0); HEMOGLOBIN 10.2 g/dL (12.0-15.5); LYMPH % 16 % (24-48); MEAN CORPUSCULAR HEMOGLOBIN 28 pg (25-35); MEAN CORPUSCULAR HGB CONC 33 g/dL (31-37); MEAN CORPUSCULAR VOLUME 83 fL (79-100); MONO # 0.5 x10^3/uL (0.0-1.1); MONO % 9 % (0-9); NEUT # 4.4 x10^3/uL (1.8-7.7); NEUT % 73 % (31-73); PLATELET COUNT 247 x10^3/uL (140-400); RED CELL DISTRIBUTION WIDTH 15.4 % (11.5-14.5)
[2019-02-26 14:32] LABS: CALCIUM 9.5 mg/dL (8.5-10.1); CREATININE 0.6 mg/dL (0.6-1.0); GFR 111.3; POTASSIUM 3.5 mmol/L (3.5-5.1)
[2019-02-26 14:39] LABS: ALBUMIN 3.9 g/dL (3.4-5.0); ALBUMIN/GLOBULIN RATIO 1.1 (1.0-1.7); TOTAL BILIRUBIN 0.5 mg/dL (0.2-1.0); TOTAL PROTEIN 7.4 g/dL (6.4-8.2)
--- NOTE | 2019-02-26 14:58 | RAD ---
EXAM: Abdomen and pelvis CT with intravenous contrast. HISTORY: Pain. TECHNIQUE: Computed tomographic images of the abdomen and pelvis were obtained following the administration of 75 cc Omnipaque 300 intravenous contrast. Multiplanar reformatting was performed. *One or more of the following individualized dose reduction techniques were utilized for this examination: 1. Automated exposure control. 2. Adjustment of the mA and/or kV according to patient size. 3. Use of iterative reconstruction technique. COMPARISON: 06/12/2017. FINDINGS: Evaluation of the lower thorax demonstrates trace bilateral pleural effusions with associated bilateral basilar atelectasis. The heart is normal in size. There is mild periportal edema. There is minimal fatty infiltration of the liver along the falciform ligament. The gallbladder is surgically absent. The pancreas, spleen, adrenal glands and kidneys are unremarkable. There is diffuse colonic wall thickening with pericolonic fatty stranding. There is relative sparing of the rectosigmoid colon. There is no evidence of bowel obstruction. There is no free air. There is a prominent uterus consistent with a post gravid patient status. There is a 5.9 cm right ovarian cyst. There is a small amount of pelvic free fluid. There is a displaced cholecystectomy clip within the pelvis to the left of midline. There is no lymphadenopathy. There is no suspicious osseous lesion. There are few benign bone islands. IMPRESSION: 1. Acute pancolitis. This may be infectious or inflammatory etiology. 2. 5.9 cm right ovarian cyst. 3. Periportal edema. This was seen on the prior study and possibly due to relative rapid patient bolus hydration. Correlation with liver enzymes laboratory values can exclude hepatitis if there is clinical concern. 4. Trace pleural effusions with basilar atelectasis. Electronically signed by: Marium Orlando MD (02/26/2019 2:55 PM) [place] [id number]
--- NOTE | 2019-02-26 15:55 | PHYS DOC ---
Past Medical History Past Medical History: Anxiety, Depression, Hypothyroid Past Surgical History: Cholecystectomy Alcohol Use: None Drug Use: None Adult General Chief Complaint Chief Complaint: ABDOMINAL PAIN HPI HPI Patient is a 39 year old female with history of anxiety and depression who presents with complaining of abdominal pain and diarrhea. Patient complaining of lelia-umbilical stabbing pain since yesterday getting force with movement. Patient complaining of more than 10 episodes of nonbloody diarrhea yesterday and today with nausea and anorexia. Patient complaining of chills without fever, vomiting, urinary symptoms, sick contacts. Patient states she has had episodes of constipation and diarrhea and diagnosed at age of 15 with IBS. Patient did not take any pain medication and states she doesn't like to take pain medication. Review of Systems Review of Systems Constitutional: Denies fever or chills [] Eyes: Denies change in visual acuity, redness, or eye pain [] HENT: Denies nasal congestion or sore throat [] Respiratory: Denies cough or shortness of breath [] Cardiovascular: No additional information not addressed in HPI [] GI: Denies abdominal pain, nausea, vomiting, bloody stools or diarrhea [] : Denies dysuria or hematuria [] Musculoskeletal: Denies back pain or joint pain [] Integument: Denies rash or skin lesions [] Neurologic: Denies headache, focal weakness or sensory changes [] Endocrine: Denies polyuria or polydipsia [] All other systems were reviewed and found to be within normal limits, except as documented in this note. Current Medications Current Medications Current Medications Medications (Trade) Dose Ordered Sig/Edda Start Time Stop Time Status Last Admin Dose Admin Info (CONTRAST GIVEN -- Rx MONITORING) 1 each PRN DAILY PRN 02/26/19 14:15 02/26/19 17:28 DC Iohexol (Omnipaque 300 Mg/ml) 75 ml 1X ONCE 02/26/19 14:15 02/26/19 14:16 DC 02/26/19 14:43 75 ML Ketorolac Tromethamine (Toradol 30mg Vial) 30 mg 1X ONCE 02/26/19 16:30 02/26/19 16:31 DC 02/26/19 16:31 30 MG Metoclopramide HCl (Reglan Vial) 10 mg 1X ONCE 02/26/19 16:45 02/26/19 16:46 DC 02/26/19 16:31 10 MG Ondansetron HCl (Zofran) 4 mg 1X ONCE 02/26/19 14:00 02/26/19 14:01 DC 02/26/19 13:57 4 MG Sodium Chloride 1,000 ml @ 1,000 mls/hr Q1H 02/26/19 13:36 02/26/19 14:35 DC 02/26/19 13:58 1,000 MLS/HR Allergies Allergies Allergies Coded Allergies Type Severity Reaction Last Updated Verified Penicillins Allergy Severe HIVES/ANAPHYLAXIS 06/12/17 Yes erythromycin base Allergy Severe HIVES/ANAPHYLAXIS 06/12/17 Yes hydromorphone Allergy Mild DELUSIONAL 06/12/17 Yes Physical Exam Physical Exam Constitutional: Well developed, well nourished, no acute distress, non-toxic appearance. [] HENT: Normocephalic, atraumatic, bilateral external ears normal, oropharynx moist, no oral exudates, nose normal. [] Eyes: PERRLA, EOMI, conjunctiva normal, no discharge. [] Neck: Normal range of motion, no tenderness, supple, no stridor. [] Cardiovascular:Heart rate regular rhythm, no murmur [] Lungs & Thorax: Bilateral breath sounds clear to auscultation [] Abdomen: Bowel sounds normal, soft, no tenderness, no masses, no pulsatile masses. [] Skin: Warm, dry, no erythema, no rash. [] Back: No tenderness, no CVA tenderness. [] Extremities: No tenderness, no cyanosis, no clubbing, ROM intact, no edema. [] Neurologic: Alert and oriented X 3, normal motor function, normal sensory func tion, no focal deficits noted. [] Psychologic: Affect normal, judgement normal, mood normal. [] Current Patient Data Vital Signs Vital Signs Date Time Temp Pulse Resp B/P (MAP) Pulse Ox O2 Delivery O2 Flow Rate FiO2 02/26/19 17:06 58 16 111/67 (82) 99 Room Air 02/26/19 13:00 98.0 98.0 Lab Values Laboratory Tests Test 02/26/19 13:22 02/26/19 13:45 02/26/19 14:00 POC Urine HCG, Qualitative Hcg negative (Negative) Urine Collection Type Unknown Urine Color Yellow Urine Clarity Clear Urine pH 8.5 Urine Specific [place] 1.020 Urine Protein Negative mg/dL (NEG-TRACE) Urine Glucose (UA) Negative mg/dL (NEG) Urine Ketones (Stick) 15 mg/dL (NEG) Urine Blood Small (NEG) Urine Nitrite Negative (NEG) Urine Bilirubin Negative (NEG) Urine Urobilinogen Dipstick 0.2 mg/dL (0.2 mg/dL) Urine Leukocyte Esterase Negative (NEG) Urine RBC Occ /HPF (0-2) Urine WBC Rare /HPF (0-4) Urine Squamous Epithelial Cells Mod /LPF Urine Bacteria Moderate /HPF (0-FEW) Urine Opiates Screen Neg (NEG) Urine Methadone Screen Neg (NEG) Urine Barbiturates Neg (NEG) Urine Phencyclidine Screen Neg (NEG) Urine Amphetamine/Methamphetamine Neg (NEG) Urine Benzodiazepines Screen Neg (NEG) Urine Cocaine Screen Neg (NEG) Urine Cannabinoids Screen Neg (NEG) Urine Ethyl Alcohol Neg (NEG) White Blood Count 6.0 x10^3/uL (4.0-11.0) Red Blood Count 3.70 x10^6/uL (3.50-5.40) Hemoglobin 10.2 g/dL (12.0-15.5) L Hematocrit 30.7 % (36.0-47.0) L Mean Corpuscular Volume 83 fL (79-100) Mean Corpuscular Hemoglobin 28 pg (25-35) Mean Corpuscular Hemoglobin Concent 33 g/dL (31-37) Red Cell Distribution Width 15.4 % (11.5-14.5) H Platelet Count 247 x10^3/uL (140-400) Neutrophils (%) (Auto) 73 % (31-73) Lymphocytes (%) (Auto) 16 % (24-48) L Monocytes (%) (Auto) 9 % (0-9) Eosinophils (%) (Auto) 1 % (0-3) Basophils (%) (Auto) 1 % (0-3) Neutrophils # (Auto) 4.4 x10^3/uL (1.8-7.7) Lymphocytes # (Auto) 1.0 x10^3/uL (1.0-4.8) Monocytes # (Auto) 0.5 x10^3/uL (0.0-1.1) Eosinophils # (Auto) 0.1 x10^3/uL (0.0-0.7) Basophils # (Auto) 0.0 x10^3/uL (0.0-0.2) Sodium Level 143 mmol/L (136-145) Potassium Level 3.5 mmol/L (3.5-5.1) Chloride Level 107 mmol/L (98-107) Carbon Dioxide Level 27 mmol/L (21-32) Anion Gap 9 (6-14) Blood Urea Nitrogen 13 mg/dL (7-20) Creatinine 0.6 mg/dL (0.6-1.0) Estimated GFR (Cockcroft-Gault) 111.3 BUN/Creatinine Ratio 22 (6-20) H Glucose Level 87 mg/dL (70-99) Calcium Level 9.5 mg/dL (8.5-10.1) Total Bilirubin 0.5 mg/dL (0.2-1.0) Aspartate Amino Transferase (AST) 12 U/L (15-37) L Alanine Aminotransferase (ALT) 15 U/L (14-59) Alkaline Phosphatase 51 U/L (46-116) Total Protein 7.4 g/dL (6.4-8.2) Albumin 3.9 g/dL (3.4-5.0) Albumin/Globulin Ratio 1.1 (1.0-1.7) Lipase 123 U/L (73-393) Laboratory Tests 02/26/19 14:00 Laboratory Tests 02/26/19 14:00 EKG EKG [] Radiology/Procedures Radiology/Procedures [][facility] [address] [place], [place] [id number] IMAGING REPORT Signed PATIENT: GUERLINE ELLISON SACCOUNT: [id number] : 1980 LOCATION: ER AGE: 39 SEX: F EXAM STATUS: REG ER ORD. PHYSICIAN: ROSA ISELA MURO MD REASON: RLQ, LUQ, LLQ abdominal pain PROCEDURE: CT ABD PELV W/ IV CONTRST ONLY EXAM: Abdomen and pelvis CT with intravenous contrast. HISTORY: Pain. TECHNIQUE: Computed tomographic images of the abdomen and pelvis were obtained following the administration of 75 cc Omnipaque 300 intravenous contrast. Multiplanar reformatting was performed. *One or more of the following individualized dose reduction techniques were utilized for this examination: 1. Automated exposure control. 2. Adjustment of the mA and/or kV according to patient size. 3. Use of iterative reconstruction technique. COMPARISON: 06/12/2017. FINDINGS: Evaluation of the lower thorax demonstrates trace bilateral pleural effusions with associated bilateral basilar atelectasis. The heart is normal in size. There is mild periportal edema. There is minimal fatty infiltration of the liver along the falciform ligament. The gallbladder is surgically absent. The pancreas, spleen, adrenal glands and kidneys are unremarkable. There is diffuse colonic wall thickening with pericolonic fatty stranding. There is relative sparing of the rectosigmoid colon. There is no evidence of bowel obstruction. There is no free air. There is a prominent uterus consistent with a post gravid patient status. There is a 5.9 cm right ovarian cyst. There is a small amount of pelvic free fluid. There is a displaced cholecystectomy clip within the pelvis to the left of midline. There is no lymphadenopathy. There is no suspicious osseous lesion. There are few benign bone islands. IMPRESSION: 1. Acute pancolitis. This may be infectious or inflammatory etiology. 2. 5.9 cm right ovarian cyst. 3. Periportal edema. This was seen on the prior study and possibly due to relative rapid patient bolus hydration. Correlation with liver enzymes laboratory values can exclude hepatitis if there is clinical concern. 4. Trace pleural effusions with basilar atelectasis. Electronically signed by: Marium Bryant MD (02/26/2019 2:55 PM) [address] [place] [address] IMAGING REPORT Signed PATIENT: GUERLINE ELLISON SACCOUNT: [id number] : 1980 LOCATION: ER AGE: 39 SEX: F EXAM STATUS: REG ER ORD. PHYSICIAN: ROSA ISELA MURO MD REASON: RT ovarian cyst seen on CT scan today PROCEDURE: PELVIS COMPLETE EXAM: Pelvic sonogram. HISTORY: Ovarian cyst on CT. TECHNIQUE: Sonographic imaging of the pelvis was performed. COMPARISON: CT obtained on the same date. FINDINGS: The uterus measures 8.7 x 6.6 x 5.1 cm. The endometrial stripe measures 2 mm in thickness. There is nabothian cysts within the cervix measuring 8 mm. There is a right ovarian cyst with internal septation or 2 adjacent cysts measuring 5.8 cm in conglomerate. The surrounding right ovarian parenchyma demonstrates normal blood flow. There are small left ovarian follicles. The left ovary is normal in size and demonstrates normal blood flow. There is no pelvic free fluid. IMPRESSION: 1. 5.8 cm complex right ovarian cyst with internal septation or 2 adjacent cysts. 2. Nabothian cysts within the cervix. 3. Thin endometrial stripe. Electronically signed by: Marium Bryant MD (02/26/2019 4:16 PM) [facility] DICTATED and SIGNED BY: MARIUM BRYANT MD DATE: 02/26/19 1616 Course & Med Decision Making Course & Med Decision Making Pertinent Labs and Imaging studies reviewed. (See chart for details) Evaluation of patient in ER showed 39-year-old female patient with complaining of abdominal pain and diarrhea since yesterday. Patient had unremarkable physical exam. Labs showed mild anemia but patient denies heavy menstruation and rectal bleeding. CT of abdomen and pelvis showed pancolitis and right ovarian cyst. Pelvic ultrasound showed 5.8 cm right ovarian cyst with septation. Patient felt better with treatment in ER. Patient was advised to follow-up with on-call GI specialist regarding colitis and possible endoscopy for evaluation of ulcerative colitis or Crohn's disease. Patient also was advised to follow up with on-call SIGNALS INTELLIGENCE ANALYST for large right ovarian cyst. I've spoken with the patient and/or caregivers. I've explained the patient's condition, diagnosis and treatment plan based on information available to me at this time. I've answered the patient's and/or caregivers questions and addressed any concerns. The patient and/or caregivers have a good understanding the patient's diagnosis, condition and treatment plan as can be expected at this point. Vital signs have been stabilized. The patient's condition is stable for discharge from the emergency department. The patient will pursue further outpatient evaluation with her primary care provider or other designated consulting physician as outlined in the discharge instructions. Patient and/or caregivers are agreeable to this plan of care and follow-up instructions have been explained in detail. The patient and/or caregivers have received these instructions in written format and expressed understanding of these discharge instructions. The patient and her caregivers are aware that if any significant change in condition or worsening of symptoms should prompt him to immediately return to this of the closest emergency department. If an emergent department is not readily available I would encourage him to call 911. [place] Disclaimer Dragon Disclaimer This electronic medical record was generated, in whole or in part, using a voice recognition dictation system. Departure Departure Impression: Primary Impression: Pancolitis Additional Impressions: Ovarian cyst Abdominal pain Nausea Anemia Disposition: HOME, SELF-CARE (at 1642) Condition: IMPROVED Referrals: MARCELINO ZUNIGA PA-C (PCP) ANTWON MCCLURE MD, SCOTT S MD Patient Instructions: Colitis, Diarrhea, Nausea, Adult, Ovarian Cyst Additional Instructions: Drink plenty of liquids Follow-up with your primary care physician in 3-5 days Return to ER if not getting better Do not eat solid food for 24 hours after diarrhea Follow-up with on-call SIGNALS INTELLIGENCE ANALYST and urologist regarding ovarian cyst and colitis Scripts Ondansetron Hcl (ZOFRAN) 4 Mg Tablet 1 TAB PO PRN Q6-8HRS for nausea, #12 TAB Prov: ROSA ISELA MURO MD 02/26/19 Tramadol Hcl (ULTRAM) 50 Mg Tablet 50 MG PO Q6HRS PRN for PAIN, #14 TAB 0 Refills Prov: ROSA ISELA MURO MD 02/26/19 Problem Qualifiers Additional Impressions: Ovarian cyst Laterality: right Qualified Codes: N83.201 - Unspecified ovarian cyst, right side Abdominal pain Abdominal location: periumbilical Qualified Codes: R10.33 - Periumbilical pain Anemia Anemia type: unspecified type Qualified Codes: D64.9 - Anemia, unspecified ROSA ISELA MURO MD Feb 26, 2019 15:55
--- NOTE | 2019-02-26 16:19 | RAD ---
EXAM: Pelvic sonogram. HISTORY: Ovarian cyst on CT. TECHNIQUE: Sonographic imaging of the pelvis was performed. COMPARISON: CT obtained on the same date. FINDINGS: The uterus measures 8.7 x 6.6 x 5.1 cm. The endometrial stripe measures 2 mm in thickness. There is nabothian cysts within the cervix measuring 8 mm. There is a right ovarian cyst with internal septation or 2 adjacent cysts measuring 5.8 cm in conglomerate. The surrounding right ovarian parenchyma demonstrates normal blood flow. There are small left ovarian follicles. The left ovary is normal in size and demonstrates normal blood flow. There is no pelvic free fluid. IMPRESSION: 1. 5.8 cm complex right ovarian cyst with internal septation or 2 adjacent cysts. 2. Nabothian cysts within the cervix. 3. Thin endometrial stripe. Electronically signed by: Marium Orlando MD (02/26/2019 4:16 PM) [id number]
[2019-02-26] MEDS ORDERED: KETOROLAC 30 MG/ML VIAL. IV ONE (16:30)
[2019-02-26] MEDS ORDERED: ONDA4TAB7 PO (16:45)
[2019-02-26] MEDS ORDERED: TRAM-48 PO (16:45)
[2019-02-26] MEDS ORDERED: METOCLOPRAMIDE HCL 10 MG/2 ML VIAL. IVP ONE (16:45)
[2019-02-26 17:06] VITALS: BP 111/67
== END 2019-02-26 17:06 | disposition home or self-care (01) ==
LOC: ER 12:26
DX: K51.018 Ulcerative (chronic) pancolitis with other complication (principal); N83.291 Other ovarian cyst, right side; D64.9 Anemia, unspecified; R19.7 Diarrhea, unspecified; E03.9 Hypothyroidism, unspecified; Z90.49 Acquired absence of other specified parts of digestive tract; Z88.0 Allergy status to penicillin; Z88.1 Allergy status to other antibiotic agents; Z88.5 Allergy status to narcotic agent
CPT/HCPCS: 36415; 74177; 76856; 80053; 80307; 81001; 81025; 83690; 85025; 87086; 96361; 96374; 96375; 99285; J1885; J2405; J2765; J7030; Q9967

== ENCOUNTER 2019-02-28 16:55 | Inpatient (IN) | payer OTHER ==
[~2019-02-28] VITALS: Ht 175.3 cm; Wt 65.8 kg
[~2019-02-28 16:55] MED LIST changes: +TRAM-48 PO
[2019-02-28 17:41] VITALS: BP 104/62
[2019-02-28] MEDS ORDERED: ALPRAZolam 0.5 MG TABLET PO PRN (17:45)
[2019-02-28 19:00] VITALS: BP 93/59
--- NOTE | 2019-02-28 19:00 | HP ---
ADMIT DATE: 02/28/2019 CHIEF COMPLAINT: Persistent diarrhea. HISTORY OF PRESENT ILLNESS: A 39-year-old white female was feeling reasonably well until about 4 days prior to admission, when she ate at a local hideout. She had an omelette and some other things and a few hours later, developed some abdominal pain and nonbloody diarrhea. She was seen 36 hours later at the ER at [facility] and was told she had an "inflamed colon" from CT scan as well as a 6 cm ovarian cyst, which was confirmed by sonogram. She has had nonbloody stools, but persistent diarrhea after getting 2 liters of IV fluids and some supportive care meds. There has been no vomiting, fever, chills, or any recent travel or recent antibiotics. had similar food and had very brief transient diarrhea, but resolved quickly. PAST HISTORY: MEDICATIONS: Include Prozac, omeprazole, Xanax, and thyroid. She has had some chronic constipation in the past and was taking Linzess, but no longer takes that. PAST SURGICAL HISTORY: Surgically, she has had her gallbladder out. ALLERGIES: SHE HAS ALLERGY LISTED TO PENICILLIN AND ERYTHROMYCIN. She had a colonoscopy about 9 years ago. FAMILY HISTORY: Unremarkable. SOCIAL HISTORY: She is a some-day smoker. She is . She is employed. A very light drinker. REVIEW OF SYSTEMS: She has chronic painful intercourse, which was presumably from the ovarian cyst that she has been found to have. She has chronic dizziness and was told by ENT that she has Meniere's, but has not responded to medications at this point. OBJECTIVE: ENT: Mucosa pink and moist. TMs and pharynx clear. Eyes normal. NECK: No nodes, masses, or bruits. LUNGS: Clear, without tachypnea. CARDIOVASCULAR: Regular rate. No tachycardia or murmur. ABDOMEN: Diffusely mildly tender. No masses, guarding, or rebound is noted. Bowel sounds diminished. EXTREMITIES: Good pedal and radial pulses. No joint or skin lesions or nail bed findings. RECTAL: Deferred. NEUROLOGIC: Physiologic and nonfocal. ASSESSMENT: 1. Pancolitis in the face of a persistent diarrhea for 4 days after eating out. As she ate egg products, possibility would include Shigella along with little bacterial sources less likely C. diff or any kind of noninfectious colitis. 2. Hypothyroidism, on remission medicine. 3. Chronic mild anxiety. 4. Ovarian cyst with secondary dyspareunia. PLAN: Full stool studies to evaluate possible etiology. We will treat as possible Shigella once stool was obtained with IV Cipro for now. Supportive fluids and supportive care. EARNEST REYES MD DR: CINTHIA/amanda JOB#: [id number] / [id number]
[2019-02-28 19:05] LABS: BASO % 1 % (0-3); EOS # 0.2 x10^3/uL (0.0-0.7); EOS % 3 % (0-3); HEMATOCRIT 32.5 % (36.0-47.0); HEMOGLOBIN 10.6 g/dL (12.0-15.5); LYMPH # 1.7 x10^3/uL (1.0-4.8); LYMPH % 30 % (24-48); MEAN CORPUSCULAR HEMOGLOBIN 27 pg (25-35); MEAN CORPUSCULAR HGB CONC 33 g/dL (31-37); MEAN CORPUSCULAR VOLUME 84 fL (79-100); MONO # 0.5 x10^3/uL (0.0-1.1); MONO % 9 % (0-9); NEUT # 3.2 x10^3/uL (1.8-7.7); NEUT % 58 % (31-73); PLATELET COUNT 268 x10^3/uL (140-400); RED BLOOD COUNT 3.89 x10^6/uL (3.50-5.40); RED CELL DISTRIBUTION WIDTH 15.5 % (11.5-14.5); WHITE BLOOD COUNT 5.6 x10^3/uL (4.0-11.0)
[2019-02-28] MEDS ORDERED: KETOROLAC 30 MG/ML VIAL. IV PRN (19:30)
[2019-02-28] MEDS: IV DEXTROSE 5%-LACT RINGERS 1,000 ML IV SCH (19:49)
[2019-02-28 19:54] LABS: ALBUMIN 4.3 g/dL (3.4-5.0); ALBUMIN/GLOBULIN RATIO 1.2 (1.0-1.7); CALCIUM 9.6 mg/dL (8.5-10.1); CREATININE 0.8 mg/dL (0.6-1.0); GFR 79.9; POTASSIUM 3.7 mmol/L (3.5-5.1); TOTAL BILIRUBIN 0.4 mg/dL (0.2-1.0); TOTAL PROTEIN 7.8 g/dL (6.4-8.2)
[2019-02-28] MEDS: CIPROFLOXACIN 400MG PREMIX 200 ML IV SCH (21:00)
[2019-02-28 23:00] VITALS: BP 89/56
[2019-03-01 03:00] VITALS: BP 110/67
[2019-03-01] MEDS: IV DEXTROSE 5%-LACT RINGERS 1,000 ML IV SCH ×2 (04:00→11:17)
[2019-03-01 07:00] VITALS: BP 94/61
--- NOTE | 2019-03-01 07:05 | NUR ---
2100 cipro non admin on EMAR. Waiting for stool sample prior to starting abx per Dr. Coreas's orders.
[2019-03-01] MEDS: CIPROFLOXACIN 400MG PREMIX 200 ML IV SCH ×3 (09:00→21:27)
--- NOTE | 2019-03-01 09:08 | PDOC ---
Provider Note Provider Note feels some better, afeb, no more stools since admit- tsh high on 100 mcg so inc to 125- hold cipro pending stool, may be self limited shigella or salmonella EARNEST REYES MD Mar 01, 2019 09:08
[2019-03-01 11:00] VITALS: BP 92/60
[2019-03-01] MEDS: FLUoxetine HCL 10 MG CAPSULE PO SCH (11:16)
[2019-03-01] MEDS: LEVOTHYROXINE 125 MCG TABLET PO SCH (11:16)
[2019-03-01] MEDS ORDERED: ONDANSETRON PF 4 MG/2 ML VIAL. IVP PRN (13:30)
[2019-03-01 15:00] VITALS: BP 94/62
--- NOTE | 2019-03-01 15:59 | NUR ---
SS following for discharge planning. SS reviewed pt chart. Pt is from home and is currently on room air. SS will continue to follow for discharge planning.
[2019-03-01] MEDS ORDERED: DICYCLOMINE HCL 10 MG CAPSULE PO PRN (16:15)
[2019-03-01] MEDS ORDERED: diphenhydrAMINE HCL 25 MG CAPSULE PO PRN (16:15)
[2019-03-01] MEDS ORDERED: ONDANSETRON ODT 4 MG TAB.RAPDIS. PO PRN (16:15)
[2019-03-01 19:20] VITALS: BP 104/62
[2019-03-01] MEDS: LACTOBACILLUS RHAMNOSUS GG 1 CAPSULE. PO SCH (21:26)
[2019-03-01 23:34] VITALS: BP 90/60
[2019-03-02 03:39] VITALS: BP 88/50
[2019-03-02] MEDS: LEVOTHYROXINE 125 MCG TABLET PO SCH (05:59)
[2019-03-02] MEDS: IV DEXTROSE 5%-LACT RINGERS 1,000 ML IV SCH (05:59)
[2019-03-02 07:00] VITALS: BP 101/65
[2019-03-02] MEDS: FLUoxetine HCL 10 MG CAPSULE PO SCH (08:43)
[2019-03-02] MEDS: CIPROFLOXACIN 400MG PREMIX 200 ML IV SCH (08:43)
[2019-03-02] MEDS: LACTOBACILLUS RHAMNOSUS GG 1 CAPSULE. PO SCH (08:43)
--- NOTE | 2019-03-02 09:07 | PDOC ---
Provider Note Provider Note [id number] EARNEST REYES MD Mar 02, 2019 09:07
--- NOTE | 2019-03-02 09:26 | DS ---
DATE OF DISCHARGE: 03/02/2019 HOSPITAL SUMMARY: A 39-year-old white female admitted with intractable diarrhea, abdominal pain and evidence of pancolitis for outpatient CT. CBC showed normal white count, hemoglobin of 10.6, MCV 84 and ferritin low at 8. Chemistry profile is normal except for the TSH was 43 and stool culture is pending. She was given IV fluids and then her oral Synthroid was increased to 125 mcg based on the TSH value. Diarrhea diminished after admission without specific drug treatment, but a stool sample was obtained and Cipro was started and advanced as a result for the possibility of Shigella or salmonella etiology. She has had essentially minimal diarrhea at this point, feeling better and comfortable, to be followed as an outpatient. FINAL DIAGNOSES: 1. Acute infectious gastroenteritis, suspect Shigella or salmonella. 2. Hypothyroidism. OPERATIONS, PROCEDURES, COMPLICATIONS, CONSULTATIONS: None. DISPOSITION: She will increase her levothyroxine to 125 mcg from 100 and followup TSH in 1-2 months. No further antibiotics will be given pending results of culture and I will contact her if further Cipro is needed. Regular diet. Avoiding lactose products. Home meds remain the same. No office followup is needed and prognosis is good. I believe this source of this infection was likely from food she ate 2-3 days prior to admission, likely an egg-based pathogen that appeared to be self-limiting at this point. EARNEST REYES MD DR: CINTHIA/amanda JOB#: [id number] / [id number]
--- NOTE | 2019-03-02 10:35 | NUR ---
Pt. discharged to home, verbalized understanding of discharge instructions.
== END 2019-03-02 10:30 | disposition home or self-care (01) | DRG 392 ==
LOC: 4 NORTH 17:29
PROVIDERS: ADMIT Family Medicine; ATTEND Family Medicine
DX: A09 Infectious gastroenteritis and colitis, unspecified (principal); F41.9 Anxiety disorder, unspecified; N83.209 Unspecified ovarian cyst, unspecified side; A03.8 Other shigellosis; E03.9 Hypothyroidism, unspecified; F17.200 Nicotine dependence, unspecified, uncomplicated; N94.10 Unspecified dyspareunia; Z88.0 Allergy status to penicillin; Z88.8 Allergy status to other drugs, medicaments and biological substances; Z79.899 Other long term (current) drug therapy
CPT/HCPCS: 36415; 80053; 82728; 84443; 85025; 87045; 87328; J0744; J1885; J2405; Q0162; Q0163; G0378

== ENCOUNTER → 2019-04-27 | Outpatient (CLI) | payer OTHER ==
[2019-04-27 13:16] LABS: BASO % 1 % (0-3); EOS # 0.1 x10^3/uL (0.0-0.7); EOS % 2 % (0-3); HEMATOCRIT 31.7 % (36.0-47.0); HEMOGLOBIN 10.3 g/dL (12.0-15.5); LYMPH # 1.4 x10^3/uL (1.0-4.8); LYMPH % 30 % (24-48); MEAN CORPUSCULAR HEMOGLOBIN 27 pg (25-35); MEAN CORPUSCULAR HGB CONC 33 g/dL (31-37); MEAN CORPUSCULAR VOLUME 82 fL (79-100); MONO # 0.5 x10^3/uL (0.0-1.1); MONO % 10 % (0-9); NEUT # 2.6 x10^3/uL (1.8-7.7); NEUT % 57 % (31-73); PLATELET COUNT 291 x10^3/uL (140-400); RED BLOOD COUNT 3.87 x10^6/uL (3.50-5.40); RED CELL DISTRIBUTION WIDTH 16.5 % (11.5-14.5); WHITE BLOOD COUNT 4.6 x10^3/uL (4.0-11.0)
[2019-04-27 13:18] LABS: BILIRUBIN,URINE NEGATIVE (NEG); CLARITY,URINE CLEAR; COLOR,URINE YELLOW; NITRITE,URINE NEGATIVE (NEG); PH,URINE 5.5; PROTEIN,URINE NEGATIVE (NEG-TRACE); UROBILINOGEN,URINE 0.2 mg/dL (0.2 mg/dL)
--- NOTE | 2019-04-27 13:20 | EKG ---
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
[2019-04-27 13:48] LABS: ALBUMIN 4.1 g/dL (3.4-5.0); CALCIUM 9.5 mg/dL (8.5-10.1); CREATININE 0.6 mg/dL (0.6-1.0); GFR 111.3; TOTAL BILIRUBIN 0.4 mg/dL (0.2-1.0); TOTAL PROTEIN 8.2 g/dL (6.4-8.2)
[2019-04-27 14:04] LABS: BACTERIA,URINE FEW /HPF (0-FEW); SQUAMOUS EPITHELIAL CELL,UR OCC /LPF
--- NOTE | 2019-04-30 14:58 | NUR ---
lab results, ekg and chest xray results faxed to Dr. Brar
== END | disposition home or self-care (01) ==
LOC: SURGPAT 12:29
PROVIDERS: ATTEND Obstetrics & Gynecology
DX: Z01.818 Encounter for other preprocedural examination (principal); E03.9 Hypothyroidism, unspecified; Z88.0 Allergy status to penicillin; Z88.8 Allergy status to other drugs, medicaments and biological substances
CPT/HCPCS: 36415; 80053; 81001; 85025; 93005

== ENCOUNTER 2019-05-02 06:05 | Observation (INO) | payer OTHER ==
[~2019-05-02] VITALS: Ht 175.3 cm; Wt 66.2 kg
[~2019-05-02 06:05] MED LIST changes: +CLINDAMYCIN 900MG PREMIX 50 ML IV PRN
[2019-05-02] MEDS ORDERED: DEXAMETHASONE SOD PHOS 4 MG/ML VIAL ONE (06:28)
[2019-05-02] MEDS ORDERED: ONDANSETRON PF 4 MG/2 ML VIAL. ONE (06:28)
[2019-05-02] MEDS ORDERED: ROCURONIUM 50 MG/5 ML VIAL. ONE (06:28)
[2019-05-02] MEDS ORDERED: fentaNYL PF VIAL 100 MCG/2 ML VIAL ONE (06:28)
[2019-05-02] MEDS ORDERED: PROPOFOL 20 ML IV ONE (06:28)
[2019-05-02] MEDS ORDERED: LIDOCAINE 2% PF 5 ML VIAL. ONE (06:28)
[2019-05-02] MEDS ORDERED: fentaNYL PF VIAL 100 MCG/2 ML VIAL IV PRN ×2 (07:00)
[2019-05-02] MEDS ORDERED: LIDOCAINE 1% PF 2 ML VIAL. ID PRN (07:00)
[2019-05-02] MEDS ORDERED: ONDANSETRON PF 4 MG/2 ML VIAL. IV PRN ×2 (07:00→10:15)
[2019-05-02] MEDS ORDERED: PROCHLORPERAZINE 10 MG/2 ML VIAL. IV PRN (07:00)
[2019-05-02] MEDS ORDERED: HYDROmorphone 2 MG/ML VIAL IV PRN (07:00)
[2019-05-02] MEDS ORDERED: MORPHINE SULFATE 2 MG/ML VIAL. IV PRN (07:00)
[2019-05-02] MEDS ORDERED: IV RINGERS,LACTATED 1000ML 1,000 ML IV SCH (07:00)
[2019-05-02] MEDS ORDERED: INDIGOTINDISULFONATE SODIUM 40 MG/5 ML AMPUL. ONE (07:12)
[2019-05-02] MEDS ORDERED: ESTROGENS, CONJ VAGINAL CREAM 30GM TUBE. ONE (07:12)
[2019-05-02] MEDS ORDERED: MIDAZOLAM HCL/PF 2 MG/2 ML VIAL. ONE (07:17)
[2019-05-02] MEDS ORDERED: PROPOFOL 100 ML IV ONE (07:19)
[2019-05-02] MEDS ORDERED: REMIFENTANIL 2 MG VIAL. IV ONE (07:20)
[2019-05-02] MEDS ORDERED: ONDANSETRON ODT 4 MG TAB.RAPDIS. PO PRN (07:45)
[2019-05-02] MEDS ORDERED: ALPRAZolam 0.5 MG TABLET PO PRN (07:45)
[2019-05-02] MEDS ORDERED: LEVOTHYROXINE 25 MCG TABLET. PO SCH (07:45)
[2019-05-02] MEDS ORDERED: BUPIVACAINE-EPI 0.25%-1:200000 MPF 30 ML VIAL. INJ ONE (08:00)
[2019-05-02] MEDS ORDERED: NEOSTIGMINE METHYLSULFATE 5 MG/5 ML SYRINGE. ONE (08:47)
[2019-05-02] MEDS ORDERED: PROPOFOL 50 ML IV ONE (09:18)
[2019-05-02] MEDS ORDERED: KETOROLAC 30 MG/ML VIAL. ONE (09:24)
[2019-05-02] MEDS ORDERED: GLYCOPYRROLATE 1 MG/5 ML VIAL. ONE (09:39)
--- NOTE | 2019-05-02 10:12 | PDOC ---
BRIEF OPERATIVE NOTE Date: May 02, 2019 Pre-Op Diagnosis right ovarian cyst, menorrhagia, anemia Post-Op Diagnosis same plus endometriosis and left ovarian cyst Procedure Performed LAVH/RSO/left salpingectomy/vapo endometriosis/drainage of left ovarian cyst Surgeon Dr. Karin Brar Wellness Program Administrator MONROE Fernandez Anesthesiologist Dr. Yanez Anesthesia Type: General Blood Loss 75cc IV Fluid 1200cc Urine Output 50cc clear via randolph Specimens Obtained cervix, uterus, left tube, right tube and ovary Findings enlarged RV uterus, stage 2-3 endometriosis in cul de sac/over right and left sidewalls over ureters and chocolate cyst on right side, bilateral enlarged ovaries but clear serous cyst on left side; grossly normal appearing appendix a nd RUQ, mild left sided adhesions Complications none Operative Note [id number] KARIN BRAR MD May 02, 2019 10:12
[2019-05-02] MEDS ORDERED: diphenhydrAMINE 50 MG/ML VIAL IV PRN (10:15)
[2019-05-02] MEDS ORDERED: LACTULOSE 20 GM/30 ML SOLUTION. PO PRN (10:15)
[2019-05-02] MEDS ORDERED: 0.9 % SODIUM CHLORIDE 10 ML DISP.SYRIN. IV PRN (10:15)
[2019-05-02] MEDS ORDERED: diphenhydrAMINE HCL 25 MG CAPSULE PO PRN (10:15)
[2019-05-02] MEDS ORDERED: NALOXONE 0.4 MG/ML VIAL. IV PRN (10:15)
[2019-05-02] MEDS ORDERED: ZOLPIDEM 5 MG TABLET. PO PRN (10:15)
[2019-05-02] MEDS ORDERED: CALCIUM CARBONATE 500 MG TAB.CHEW PO PRN (10:15)
[2019-05-02] MEDS ORDERED: MAGNESIUM HYDROXIDE 2,400 MG/30 ML ORAL.SUSP. PO PRN (10:15)
[2019-05-02] MEDS ORDERED: MAG HYDROX/ALUMINUM HYD/SIMETH 30 ML ORAL.SUSP PO PRN (10:15)
--- NOTE | 2019-05-02 10:56 | OP ---
DATE OF SURGERY: 05/02/2019 PREOPERATIVE DIAGNOSES: Right ovarian cyst, menorrhagia, and anemia. POSTOPERATIVE DIAGNOSES: Right ovarian cyst, menorrhagia, and anemia, endometriosis with a left ovarian cyst. SURGEON: Annie Sosa MD STEM MAKER: first esteban Agarwal. PROCEDURE: Laparoscopic-assisted vaginal hysterectomy, right salpingo-oophorectomy, left salpingectomy, vaporization of endometriosis, drainage of left ovarian cyst. ANESTHESIOLOGIST: Dr. Chopra. ANESTHESIA: General. ESTIMATED BLOOD LOSS: 75 mL. URINE OUTPUT: 50 mL clear via Alarcon catheter. INTRAVENOUS FLUIDS: 1200 mL of Crystalloid. SPECIMENS: Cervix, uterus, left tube, right tube, and ovary. FINDINGS: An enlarged retroverted uterus, stage 2 to 3 endometriosis with endometriosis in the posterior cul-de-sac, right and left pelvic side horne, but over the ureter and great vessels and there appeared to be a chocolate cyst on the right side. Also, she had bilaterally enlarged ovaries, but the left side was clear serous fluid and this was just drained and she kept it per request, but she had a grossly normal appearing appendix and right upper quadrant. COMPLICATIONS: No complications. DESCRIPTION OF PROCEDURE: This patient was taken to the operating room where general anesthesia was placed. The patient was [facility] The patient's abdomen and vagina were both prepped and draped in the normal sterile fashion and a Alarcon catheter had been inserted under sterile technique. Upon my arrival, a timeout was performed. Once everyone agreed and she had received her preoperative antibiotics, a bivalve speculum was placed in the patient's vagina. A single-tooth tenaculum was used to grasp the anterior lip of the cervix. A 10 mL of 0.25% Marcaine with epinephrine was used to circumferentially inject around the cervix for both hemodissection and hemostatic purposes later. The Valtchev uterine manipulator was placed through the endocervical os, locked on the single tooth tenaculum and the bivalve speculum was then removed. Top gloves were discarded and changed. Attention was then turned to the abdomen where a small infraumbilical skin incision was made with the scalpel. A curved Kristina was used to dissect through the subcuticular layer to the fascia. It was injected with local prior to this. Once in, placing her in Trendelenburg, using gas to insufflate the abdominal cavity, assuring no trauma and intra-abdominal placement, right and left lower quadrant ports were placed, transilluminating the abdominal wall, finding an area clear of any vasculature, injecting it with the 0.25% Marcaine, making a small incision and placing it under direct visualization using 4-5 mL of air to fill the trocar cuff. Once in I moved the port of the camera to a lateral port to make sure it was clear, it was, and insufflated this trocar as well with the 4-5 mL of air. At this point, it was noted she had an enlarged retroverted uterus with bilateral ovarian cysts. The left one appeared to be clear. I did poke a hole in it with the monopolar hook and clear serous straw-colored fluid returned and it shrunk down immediately. I could see the ureter on the left. I went above the ovary on the left and just did a salpingectomy. It did appear that she had some endometriosis on the left sidewall, the right sidewall, the cul-de-sac. I did cauterize and vaporize the cul-de-sac lesions at the very end, but I did not touch the bilateral sidewalls. When moving the right ovary around, even just touching it, it appeared to have brown liquid pour from it like a chocolate cyst, so this one was the one that was going to be removed anyway, so elevating the right tube and ovary, finding the ureter coursing low, staying high on the infundibulopelvic ligament, doing an oophorectomy on the right side, going over, crossing the round and then on the left side after doing the salpingectomy, crossing the uteroovarian pedicle with the LigaSure and then round, the bladder flap was created sharply with the monopolar tip while pushing the uterus cephalad, elevating the bladder flap and cutting it with the monopolar hook with the cautery and pushing it down. At this point, the uterines were obtained on the left side and hugging the cervix, going down to the uterosacral. The right side, the uterine vessels were obtained and staying in each pedicle, going down the side of the cervix as well. Once this was done, the uterus was completely blanched and free and mobile. Again, we took the left tube. It was detached and passed off separately. The right tube and ovary were removed as well, but attached to the uterus. The left ovary did remain per patient's request. At this point, attention was turned vaginally. Once this was done, attention was turned vaginally. The single tooth and Valtchev were removed. A weighted speculum was placed in the vagina. Thyroid Ender clamps were placed on the anterior and posterior lips of the cervix respectively. A scalpel was used to make a circumferential incision in the cervix. Once it was taken out sharply a little bit, an open Ray-Primo 4 x 4 was used to gently push it up and the anterior cul-de-sac was easily entered. The Ray-Primo was removed and a curved Karla was placed in the anterior cul-de-sac. The cervix was elevated and the posterior cul-de-sac was sharply entered with the Stack scissors. A #0 Vicryl stitch was used to secure the posterior peritoneum here to the vaginal cuff and tagged with a curved Kristina clamp and the needle was cut and passed off. The short weighted speculum was removed and replaced with the long weighted Shilpi speculum in the posterior cul-de-sac. Once this was done, curved Ruth clamps x 2 were placed on the patient's left uterosacral ligament where they were doubly clamped with curved Heaneys, cut with Stack scissors and suture ligated x 2 with 0 Vicryl. Second one was taken through the vaginal cuff securing uterosacral ligament to the vaginal cuff, tagged with a straight Kristina clamp and the needle was cut and passed off. This was done exactly the same on the right side, double clamping the uterosacrals with curved Ruth's, cutting with Stack scissors, suture ligating x 2 with 0 Vicryl, taking the second one through the vaginal cuff, securing uterosacral ligament to the vaginal cuff, tagging it with a straight Kristina clamp and cutting and passing the needle off. The remaining pedicle on both sides were delineated with the mixture and the vaginal LigaSure was used to cauterize and cut these. The cervix, uterus, right tube and ovary were delivered in total and again the left tube had already been taken out laparoscopically when it was detached moving the uterus around. At this point, a long Allis was used to grasp the anterior bladder peritoneum. A sponge stick was used to examine the pedicles. Once they were assured to be dry, I did cauterize one of the big blood vessels sticking out even though it was not bleeding just because it was large and double checked it. I removed the long Shilpi speculum and replaced it with the short weighted vaginal. 2-0 Vicryl was taken through the anterior bladder peritoneum, left uterosacral ligament, posterior peritoneum and right uterosacral ligament, thus closing the peritoneum in a pursestring like fashion. Once this was done, the right and left uterosacral tags were clipped. The cuff was closed in an anterior to posterior running locked fashion and tied to that posterior cuff tag. An imbricating stitch in the middle was placed for hemostasis and just to make sure it was secure. Once this was done and the cuff was hemostatic and dry and examined, all instruments were removed from the vagina. All sponge, lap and needle counts were correct x 2 below by OR personnel and attention was turned back above for a second look. All gloves were discarded and changed. The patient was placed back in Trendelenburg. Gas was reinsufflated and copious irrigation revealed tiny bit of oozing from that left ovarian pedicle site, so it was cauterized with excellent results. Copious irrigation revealed hemostasis. There was nothing running up on either side in the cul-de-sac. The cuff was dry. The right IP ligament was dry where the right ovary was removed. Tisseel was placed over the left side over the ovary with excellent result. Nell was placed over the vaginal cuff and everything was hemostatic and dry. Gas was released. It remained hemostatic. The right and left lower quadrant ports, 4-5 mL of air was removed from the trocar cuff. They were removed under direct visualization. These too were hemostatic. Looking at the pelvis, it remained dry, so gas was released through the umbilical port. It was also deflated and removed. All 3 port sites were closed with 4-0 nylon at the skin and the catheter was removed. The patient was awakened from anesthesia and brought to recovery room in stable condition. ANNIE SOSA MD DR: MANAN/amanda JOB#: [id number] / [id number]
[2019-05-02 11:15] VITALS: BP 98/50
[2019-05-02] MEDS: HYDROcodone/APAP 5/325MG 1 TAB TABLET PO PRN ×2 (13:41→20:06)
[2019-05-02 15:00] VITALS: BP 110/67
[2019-05-02 15:45] VITALS: BP 128/59
[2019-05-02] MEDS: SIMETHICONE 80 MG TAB.CHEW PO PRN (17:22)
[2019-05-02 20:00] VITALS: BP 97/62
[2019-05-03 01:00] VITALS: BP 99/51
[2019-05-03] MEDS: SIMETHICONE 80 MG TAB.CHEW PO PRN ×2 (01:00→07:32)
[2019-05-03] MEDS ORDERED: ALPRAZolam 0.25 MG TABLET PO PRN (05:02)
[2019-05-03 07:07] LABS: CALCIUM 8.9 mg/dL (8.5-10.1); CREATININE 0.7 mg/dL (0.6-1.0); GFR 93.2; POTASSIUM 3.9 mmol/L (3.5-5.1)
[2019-05-03] MEDS: HYDROcodone/APAP 5/325MG 1 TAB TABLET PO PRN (07:34)
[2019-05-03] MEDS ORDERED: BISACODYL 10 MG SUPP.RECT. PR PRN (07:45)
--- NOTE | 2019-05-03 08:36 | PDOC ---
SURGICAL PROGRESS NOTE Subjective Doing well. Minimal pain. scant vb. Tolerating PO, voiding without catheter. Complains of gas pains only Vital Signs Vital Signs Date Time Temp Pulse Resp B/P (MAP) Pulse Ox O2 Delivery O2 Flow Rate FiO2 05/03/19 01:00 98.1 56 20 99/51 (67) 96 Room Air 98.1 05/02/19 10:05 10 I&O Intake and Output 05/03/19 07:00 Intake Total 1630 ml Output Total 125 ml Balance 1505 ml Intake Oral 180 ml IV Total 1450 ml Output Urine Total 50 ml Estimated Blood Loss 75 ml # Voids 4 PATIENT HAS A ZALDIVAR: No General: Alert, Oriented X3, Cooperative, No acute distress HEENT: Atraumatic Heart: Regular rate Abdomen: Soft, No masses (all port sites c/d/i), Other Extremities: No clubbing, No cyanosis, No edema, No tenderness/swelling Skin: No rashes, No breakdown Neuro: Normal speech Psych/Mental Status: Mental status NL, Mood NL Labs Laboratory Tests Test 05/02/19 06:33 05/03/19 06:30 Bedside Urine HCG, Qualitative Hcg negative (Negative) Hematocrit 25.7 % (36.0-47.0) Sodium Level 141 mmol/L (136-145) Potassium Level 3.9 mmol/L (3.5-5.1) Chloride Level 107 mmol/L (98-107) Carbon Dioxide Level 28 mmol/L (21-32) Anion Gap 6 (6-14) Blood Urea Nitrogen 9 mg/dL (7-20) Creatinine 0.7 mg/dL (0.6-1.0) Estimated GFR (Cockcroft-Gault) 93.2 Glucose Level 93 mg/dL (70-99) Calcium Level 8.9 mg/dL (8.5-10.1) Laboratory Tests Test 05/03/19 06:30 Hematocrit 25.7 % (36.0-47.0) Sodium Level 141 mmol/L (136-145) Potassium Level 3.9 mmol/L (3.5-5.1) Chloride Level 107 mmol/L (98-107) Carbon Dioxide Level 28 mmol/L (21-32) Anion Gap 6 (6-14) Blood Urea Nitrogen 9 mg/dL (7-20) Creatinine 0.7 mg/dL (0.6-1.0) Estimated GFR (Cockcroft-Gault) 93.2 Glucose Level 93 mg/dL (70-99) Calcium Level 8.9 mg/dL (8.5-10.1) I have reviewed the following labs, vitals, nursing Cardiovascular: No pertinent hx Pulmonary: No pertinent hx GI: No pertinent hx Heme/Onc: Anemia NOS Psych: No pertinent hx Infectious disease: No pertinent hx Assessment/Plan POD#1 s/p LAVH/RSO/left salpingectomy/vapo endometriosis/drainage of left ovarian cyst routine po care d/c to home later today NPV x 6 weeks light/limited activity x [address] while on narcotic pain meds already has hydrocodone script at home filled keep scheduled follow up with me in the office in one week call or return sooner for any other questions or concerns not limited to but including pain unrelieved with pain meds, increased or unexplained vaginal bleeding or T>100.4 ANNIE SOSA MD May 03, 2019 08:36
--- NOTE | 2019-05-03 08:39 | PDOC3 ---
Discharge Summary Visit Information Date of Admission: May 02, 2019 Date of Discharge: May 03, 2019 Final Diagnosis anemia, menorrhagia, endometriosis Brief Hospital Course Allergies Allergies Coded Allergies Type Severity Reaction Last Updated Verified Penicillins Allergy Severe HIVES/ANAPHYLAXIS 04/27/19 Yes azithromycin Allergy Severe Anaphylaxis 05/01/19 Yes hydromorphone Allergy Mild DELUSIONAL 04/27/19 Yes scopolamine Allergy Mild DIARRHEA N/V 05/02/19 Yes Vital Signs Vital Signs Date Time Temp Pulse Resp B/P (MAP) Pulse Ox O2 Delivery O2 Flow Rate FiO2 05/03/19 01:00 98.1 56 20 99/51 (67) 96 Room Air 98.1 05/02/19 10:05 10 Lab Results Laboratory Tests Test 05/02/19 06:33 05/03/19 06:30 Bedside Urine HCG, Qualitative Hcg negative (Negative) Hematocrit 25.7 % (36.0-47.0) Sodium Level 141 mmol/L (136-145) Potassium Level 3.9 mmol/L (3.5-5.1) Chloride Level 107 mmol/L (98-107) Carbon Dioxide Level 28 mmol/L (21-32) Anion Gap 6 (6-14) Blood Urea Nitrogen 9 mg/dL (7-20) Creatinine 0.7 mg/dL (0.6-1.0) Estimated GFR (Cockcroft-Gault) 93.2 Glucose Level 93 mg/dL (70-99) Calcium Level 8.9 mg/dL (8.5-10.1) Laboratory Tests Test 05/03/19 06:30 Hematocrit 25.7 % (36.0-47.0) Sodium Level 141 mmol/L (136-145) Potassium Level 3.9 mmol/L (3.5-5.1) Chloride Level 107 mmol/L (98-107) Carbon Dioxide Level 28 mmol/L (21-32) Anion Gap 6 (6-14) Blood Urea Nitrogen 9 mg/dL (7-20) Creatinine 0.7 mg/dL (0.6-1.0) Estimated GFR (Cockcroft-Gault) 93.2 Glucose Level 93 mg/dL (70-99) Calcium Level 8.9 mg/dL (8.5-10.1) Brief Hospital Course Ms. Menjivar is a 39 old female who presented with menorrhagia, anemia and right ovarian mass. She underwent LAVH yesterday and found to have endometriosis and bilateral ovarian cysts. Left serous and just drained, right appeared to be endometroma and removed. She has had an unremarkable postoperative course and voiding without catheter. Ambulating well and tolerating regular diet without n/v. Main complaint is gas pains and shoulder pain. Assessment Assessment POD#1 s/p LAVH/RSO/left salpingectomy/vapo endometriosis/drainage of left ovarian cyst routine po care d/c to home later today NPV x 6 weeks light/limited activity x [address] while on narcotic pain meds already has hydrocodone script at home filled keep scheduled follow up with me in the office in one week call or return sooner for any other questions or concerns not limited to but including pain unrelieved with pain meds, increased or unexplained vaginal bleeding or T>100.4 Discharge Information Condition at Discharge: Stable Follow Up: Weeks Disposition/Orders: D/C to Home Scheduled Levothyroxine Sodium (Levothyroxine Sodium) 100 Mcg Tablet, 0.125 TAB PO DAILY for Hypothyroidism, #30 Ref 5 (Reported) Entered as Reported by: VIBHA IGLESIAS on 08/29/1820 Last Action: Continued on 05/02/19737 by ANNIE SOSA Scheduled PRN Alprazolam (Xanax) 0.5 Mg Tablet, 0.5 MG PO TID PRN PRN for ANXIETY / AGITATION, Ref 0 (Reported) Entered as Reported by: VIBHA IGLESIAS on 08/29/1820 Last Action: Continued on 05/02/19737 by ANNIE SOSA Ondansetron (Zofran Odt) 4 Mg Tab.rapdis, 4 MG PO BID PRN for NAUSEA/VOMITING for 5 Days, #10 Prescribed by: GILLES MOON MD on 06/12/17 0138 Last Action: Continued on 05/02/19737 by ANNIE SOSA Patient Instructions Patient Instructions POD#1 s/p LAVH/RSO/left salpingectomy/vapo endometriosis/drainage of left ovarian cyst routine po care d/c to home later today NPV x 6 weeks light/limited activity x [address] while on narcotic pain meds already has hydrocodone script at home filled keep scheduled follow up with me in the office in one week call or return sooner for any other questions or concerns not limited to but including pain unrelieved with pain meds, increased or unexplained vaginal bleeding or T>100.4 Hemodynamically unstable?: No Respiratory Distress?: No Serious Diagnosis?: Yes Is patient at high risk?: No Hemodynamically unstable?: No Is patient in severe pain?: Yes Is NPO status required?: Yes Hemodynamically unstable?: Yes Operative site or wounds?: Yes Poss blood loss?: Yes Persistent Pain & Nausea?: No Poss Infection?: No ANNIE SOSA MD May 03, 2019 08:39
[2019-05-03 12:30] VITALS: BP 98/57
[2019-05-03 17:08] VITALS: BP 99/54
--- NOTE | 2019-05-08 15:07 | PATHOLOGY ---
[facility] Accession Number: [id number] . 01 Material submitted: . uterus - UTERUS,CERVIX, BILATERAL FALLOPIAN TUBES AND RIGHT OVARY . 01 Clinical history: . Right ovarian cyst, pelvic pain . 02 Diagnosis: Uterus, right ovary, and right and left fallopian tubes, hysterectomy, right oophorectomy, and bilateral salpingectomy: - Cervix with mild chronic inflammation, squamous metaplasia, and nabothian cysts. - Proliferative phase endometrium. - Myometrium with focal stromal nodule, 0.2 cm. 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 - Right and left fallopian tubes with no significant histopathologic diagnosis. (EARLENE:cheli; 05/08/2019) [facility] 05/08/2019 1409 Local . 02 Comment: A tiny focal area of the right ovary contains a borderline mucinous tumor which is characterized by broad papillae lined by stratified mucinous cells which exhibit focal tufting. No evidence of stromal invasion is seen. Note that the entire cystic area of the right ovary was submitted for histologic examination and only a single 0.3 cm focus of borderline tumor was identified. (EARLENE:cheli; 05/08/2019) . 02 Electronically signed: . Giovani Ortiz MD, Pathologist NPI- [id number] . 01 Gross description: . The specimen is received in formalin, labeled "Otto, Holli, uterus cervix bilateral fallopian tubes right ovary" and consists of a 128 g uterus and cervix measuring 9.1 x 6.3 x 4.5 cm. Attached is the right tubo-ovarian complex with fallopian tube (6.0 cm in length and up to 0.4 cm in diameter) attached to a 45 g cystic ovary (5.8 x 4.8 x 3.1 cm). Received separately is the left fimbriated fallopian tube measuring 7.0 cm in length and 0.4 cm in diameter. The uterine serosa is pink-saunders smooth shiny. The slitlike 1.2 cm cervical os is surrounded by glistening pink-saunders ectocervical mucosa. It is bivalved revealing a pink-saunders smooth to corrugated endocervical canal measuring 3.2 cm in length. The endometrial cavity is triangular measuring 4.4 cm in length and up to 3.5 cm in width lined by a pink-red endometrium measuring 0.1 cm. No polyps are identified. The cervix reveals nabothian cysts. The myometrium is pink-saunders measuring up to 2.2 cm with no nodules or mass lesions. Both the right and left fallopian tubes are pink-purple with the right having a few paratubal cysts measuring up to 0.8 cm. Sectioning each reveals a well-defined lumen. The right cystic ovary has a smooth pink-saunders multilobulated surface with sectioning revealing multiple uniloculated cysts with the 2 largest containing mucoid gelatinous material. The cyst linings are smooth without papillary excrescences. Also present is a small amount of ovarian parenchyma with both corpora lutea and hemorrhagic lutea. Corporate Staff [employer]ant sections are submitted as follows: . A1: Anterior cervix A2: Posterior cervix A3: Anterior endomyometrium A4: Posterior endomyometrium A5: Right fallopian tube A6-A9: Right ovary A10: Left fallopian tube (SDY; 05/02/2019) SYU/SYU 05/02/2019 1430 Local . 02 Pathologist provided ICD-10: N72, N88.8, D27.0 . 02 CPT . 509850, 314026 Specimen Comment: A courtesy copy of this report has been sent to [phone] Specimen Comment: Report sent to Performed at: 01 [facility] [address] [place] [address] [address], [place] [id number] MD Yakov Pérez MD Phone: [phone] Performed at: [address] [id number] MD Ravi Dhillon MD Phone: [phone]
== END 2019-05-03 18:51 | disposition home or self-care (01) ==
LOC: SURG 06:05 → 3 NORTH 10:15
PROVIDERS: ADMIT Obstetrics & Gynecology; ATTEND Obstetrics & Gynecology
DX: N83.201 Unspecified ovarian cyst, right side (principal); D64.9 Anemia, unspecified; N92.0 Excessive and frequent menstruation with regular cycle; N80.3 Endometriosis of pelvic peritoneum; N85.4 Malposition of uterus
CPT/HCPCS: 36415; 58552; 80048; 81025; 85014; 86850; 86900; 86901; 88307; A7015; G0378; G0379; J1100; J1885; J1956; J2001; J2250; J2405; J2704; J2710; J3010; J3490; J7030; J7120; Q0163

== ENCOUNTER → 2019-12-26 | Outpatient (CLI) | payer OTHER ==
[~2019-12-26] MED LIST changes: -CLINDAMYCIN 900MG PREMIX 50 ML IV PRN
--- NOTE | 2019-12-26 15:33 | KCIC ---
Three-view right knee dated 12/26/2019. No comparison available. Clinical data indication: Pain. Findings 3 standing views right knee show normal bony alignment. No displaced fracture. No acute osseous or articular abnormality. No joint effusion or loose body. IMPRESSION: No acute radiographic abnormality. Electronically signed by: Lencho Willis MD (12/26/2019 3:30 PM) [facility]
== END | disposition home or self-care (01) ==
LOC: KCIC 14:28
PROVIDERS: ATTEND Family Medicine
DX: M25.561 Pain in right knee (principal); G89.29 Other chronic pain
CPT/HCPCS: 73562

== ENCOUNTER → 2020-09-04 | Outpatient (CLI) | payer OTHER ==
--- NOTE | 2020-09-04 14:27 | RAD ---
EXAM: Abdomen sonogram. HISTORY: Pain. TECHNIQUE: Sonographic imaging of the abdomen was performed. COMPARISON: CT dated 02/26/2019. FINDINGS: The liver is normal in size. No focal hepatic lesion is seen. The gallbladder is surgically absent. The common bile duct is mildly dilated for patient age, measuring 7 mm. The right kidney, pa ncreas, inferior vena cava and visualized portions of the aorta are unremarkable. IMPRESSION: 1. Mildly dilated common bile duct, likely due to reservoir effect status post cholecystectomy. 2. No acute sonographic finding. Electronically signed by: Marium Orlando MD (09/04/2020 2:25 PM) [facility]
== END ==
LOC: US 10:50
PROVIDERS: ATTEND Internal Medicine
DX: R10.11 Right upper quadrant pain (principal); Z90.49 Acquired absence of other specified parts of digestive tract
CPT/HCPCS: 76705

== ENCOUNTER 2020-10-11 13:09 | Emergency (ER) | payer OTHER ==
[~2020-10-11] VITALS: Ht 175.3 cm; Wt 66.0 kg
[2020-10-11 13:09] VITALS: BP 104/55
--- NOTE | 2020-10-11 13:16 | PHYS DOC ---
Past Medical History Past Medical History: Anxiety, Depression, Hypothyroid Past Surgical History: Cholecystectomy Smoking Status: Current Some Day Smoker Alcohol Use: None Drug Use: None General Adult EDM: Chief Complaint: Abdominal pain HPI: HPI: This is a pleasant 40-year-old female presenting with left lower quadrant abdominal/pelvic pain. It is a sharp shooting pain that started last night. It comes and goes. Radiates into the left flank. She denies any hematuria polyuria. She has a history of ovarian cysts which feels similar. No alleviating or exacerbating factors. Review of systems negative for chest pain shortness of breath vomiting. Positive for nausea. Negative for fevers chills or any rashes. All other review of systems negative. ED course: 40-year-old female presenting with left-sided abdominal pain. Blood work obtained along with CT abdomen pelvis and pelvic ultrasound. On arrival the patient is afebrile with a normal heart rate. CBC unremarkable. Chemistry panel unremarkable. test negative. Urine analysis not suggestive of infection. Abdominal CT shows cystic lesions of the left ovary with moderate amount of pelvic fluid. Ultrasound shows 2 nonvascular heterogenous masses likely related to hemorrhagic cysts. On reexamination the patient is feeling better. We will discharge her with oral nausea and pain medication to follow-up with PCP/gynecology in 1 to 2 days. Heart Score: C/O Chest Pain: No Risk Factors: Risk Factors: DM, Current or recent (<one month) smoker, HTN, HLP, family history of CAD, obesity. Risk Scores: Score 0 - 3: 2.5% MACE over next 6 weeks - Discharge Home Score 4 - 6: 20.3% MACE over next 6 weeks - Admit for Clinical Observation Score 7 - 10: 72.7% MACE over next 6 weeks - Early Invasive Strategies Current Medications: Current Medications Medications (Trade) Dose Ordered Sig/[facility] Start Time Stop Time Status Last Admin Dose Admin Ondansetron HCl (Zofran) 4 mg 1X ONCE 10/11/20 13:15 10/11/20 13:16 UNV Sodium Chloride 1,000 ml @ 1,000 mls/hr Q1H ONCE 10/11/20 13:15 10/11/20 14:14 UNV Allergies: Allergies: Allergies Coded Allergies Type Severity Reaction Last Updated Verified Penicillins Allergy Severe HIVES/ANAPHYLAXIS 04/27/19 Yes azithromycin Allergy Severe Anaphylaxis 05/01/19 Yes hydromorphone Allergy Mild DELUSIONAL 04/27/19 Yes scopolamine Allergy Mild DIARRHEA N/V 05/02/19 Yes Physical Exam: PE: Constitutional: Well developed, well nourished, no acute distress, non-toxic appearance. [] HENT: Normocephalic, atraumatic, bilateral external ears normal, oropharynx moist, no oral exudates, nose normal. [] Eyes: PERRLA, EOMI, conjunctiva normal, no discharge. [] Neck: Normal range of motion, no tenderness, supple, no stridor. [] Cardiovascular:Heart rate regular rhythm, no murmur [] Lungs & Thorax: Bilateral breath sounds clear to auscultation [] Abdomen: Bowel sounds normal, soft, left-sided lower quadrant abdominal pain which is tender to palpation without rebound tenderness or guarding., no masses, no pulsatile masses. [] Negative McBurney's point. Negative Monge sign. Skin: Warm, dry, no erythema, no rash. [] Back: No tenderness, no CVA tenderness. [] Extremities: No tenderness, no cyanosis, no clubbing, ROM intact, no edema. [] Neurologic: Alert and oriented X 3, normal motor function, normal sensory function, no focal deficits noted. [] Psychologic: Affect normal, judgement normal, mood normal. [] EKG: EKG: [] Radiology/Procedures: Radiology/Procedures: [] Course & Med Decision Making: Course & Med Decision Making Pertinent Labs and Imaging studies reviewed. (See chart for details) [] Dragon Disclaimer: Dragon Disclaimer: This electronic medical record was generated, in whole or in part, using a voice recognition dictation system. Departure Departure Impression: Primary Impression: Left ovarian cyst Additional Impression: Pelvic pain Disposition: HOME / SELF CARE / HOMELESS Condition: STABLE Referrals: MARCELINO ZUNIGA PA-C (PCP) Patient Instructions: Ovarian Cyst Additional Instructions: EMERGENCY DEPARTMENT GENERAL DISCHARGE INSTRUCTIONS Follow-up with your primary physician or gynecology in 1 to 2 days. Return to the emergency department if you have any new or concerning findings. Thank you for coming to [facility] Emergency Department (ED) today and trusting us with you care. We trust that you had a positive experience in our Emergency Department. If you wish to speak to the department management, you may call the Director at [phone]. Follow up is important in emergency/acute care visits. This condition should be evaluated by your primary care physician and any necessary consulting services for continued management within a few days (1-2) after discharge. Return to the emergency department if you have any new or concerning symptoms including but not limited to fever, chills, nausea, vomiting, intractable pain, any new rashes, chest pain, shortness of breath, uncontrolled bleeding, difficulty breathing, and/or vision loss. 1. Do you have a private Doctor? If you do not have a private doctor, please ask for a resource list of physicians or clinics that may be able to assist you with follow up care. 2. If a lab test or culture has been done and does not come back immediately, your results will be reviewed and you will be notified if you need a change in treatment. 3. Your care today has been supervised by a physician who is specially trained in emergency care. Many problems require more than one evaluation for a complete diagnosis and treatment. We recommend that you schedule your follow up appointment as recommended to ensure complete treatment of you illness or injury. If you are unable to obtain follow up care and continue to have a problem, or if your condition worsens, we recommend that you return to the ED. 4. We are not able to safely determine your condition over the phone nor are we able to give sound medical advice over the phone. For these safety reasons, if you call for medical advice we will ask you to come to the ED for further evaluation. IF YOUR SYMPTOMS WORSEN OR NEW SYMPTOMS DEVELOP, OR YOU HAVE CONCERNS ABOUT YOUR CONDITION; OR IF YOUR CONDITION WORSENS WHILE YOU ARE WAITING FOR YOUR FOLLOW UP APPOINTMENT; EITHER CONTACT YOUR PRIMARY CARE DOCTOR, THE PHYSICIAN WHOSE NAME AND NUMBER YOU WERE GIVEN, OR RETURN TO THE ED IMMEDIATELY. Scripts Ondansetron Hcl (ZOFRAN) 4 Mg Tablet 1 TAB PO Q8HRS PRN for NAUSEA, #4 TAB 0 Refills Prov: ZULY ADAM MD 10/11/20 Hydrocodone Bit/Acetaminophen (HYDROCODONE-APAP 5-325 ) 1 Tab Tablet 1 TAB PO PRN Q8HRS PRN for sev, #4 TAB 0 Refills Prov: ZULY ADAM MD 10/11/20 ZULY ADAM MD October 11, 2020 13:16
[2020-10-11] MEDS ORDERED: IV NORMAL SALINE 1000ML BAG 1,000 ML IV ONE ×2 (13:30→16:15)
[2020-10-11] MEDS ORDERED: ONDANSETRON PF 4 MG/2 ML VIAL. IV ONE (13:30)
[2020-10-11 13:35] LABS: BASO % 1 % (0-3); EOS # 0.1 x10^3/uL (0.0-0.7); EOS % 2 % (0-3); HEMATOCRIT 36.7 % (36.0-47.0); HEMOGLOBIN 12.3 g/dL (12.0-15.5); LYMPH # 1.5 x10^3/uL (1.0-4.8); LYMPH % 19 % (24-48); MEAN CORPUSCULAR HEMOGLOBIN 29 pg (25-35); MEAN CORPUSCULAR HGB CONC 34 g/dL (31-37); MEAN CORPUSCULAR VOLUME 86 fL (79-100); MONO # 0.7 x10^3/uL (0.0-1.1); MONO % 9 % (0-9); NEUT # 5.8 x10^3/uL (1.8-7.7); NEUT % 70 % (31-73); PLATELET COUNT 268 x10^3/uL (140-400); RED BLOOD COUNT 4.26 x10^6/uL (3.50-5.40); RED CELL DISTRIBUTION WIDTH 14.7 % (11.5-14.5); WHITE BLOOD COUNT 8.3 x10^3/uL (4.0-11.0)
[2020-10-11 13:45] LABS: CALCIUM 9.1 mg/dL (8.5-10.1); CREATININE 0.7 mg/dL (0.6-1.0); GFR 92.7; POTASSIUM 3.6 mmol/L (3.5-5.1)
[2020-10-11 13:50] LABS: PREG TEST PT QUAL NEGATIVE (NEG)
[2020-10-11 13:51] LABS: ALBUMIN 4.3 g/dL (3.4-5.0); ALBUMIN/GLOBULIN RATIO 1.3 (1.0-1.7); TOTAL BILIRUBIN 0.6 mg/dL (0.2-1.0); TOTAL PROTEIN 7.7 g/dL (6.4-8.2)
[2020-10-11] MEDS ORDERED: CONTRAST GIVEN. MC PRN (14:00)
[2020-10-11] MEDS ORDERED: KETOROLAC 30 MG/ML VIAL. IV ONE (14:00)
[2020-10-11] MEDS ORDERED: IOHEXOL 300 MG/ML 100ML VIAL. IV ONE (14:30)
--- NOTE | 2020-10-11 14:30 | RAD ---
US PELVIS W/TV Clinical Indication: Reason: LEFT SIDED PELVIC PAIN / Spl. Instructions: PARTIAL HYSTERECTOMY AND RT OOPHERECTOMY / History: Comparison: Pelvic ultrasound February 26, 2019. TECHNIQUE: Real-time ultrasound imaging of the pelvis using transabdominal and transvaginal window is performed. Findings: The uterus and right ovary are surgically absent. The vaginal cuff is unremarkable. There is moderate pelvic and bilateral adnexal free fluid. The left ovary measures 5.5 x 5.5 x 4 cm. There is normal blood flow in the left ovary. The left ovar y contains a nonvascular mass measuring 3.2 x 3.1 x 3 cm. The mass is predominantly isoechoic with sm all cystic spaces. A component of it appears more cystic with lacelike internal hyperechogenicity is. There is a similar-appearing mass that is slightly more hypoechoic measuring 2.1 x 2.1 x 1.5 cm. Thi s mass is also nonvascular. These masses do not demonstrate posterior acoustic features. Fat within t hese lesions is not appreciated sonographically. There is several functional cysts containing interna l echoes in the ovaries, largest measures 1.4 cm. IMPRESSION: 1. Normal blood flow in the left ovary. There are 2 nonvascular, heterogeneous masses in the ovary. Considerations include hemorrhagic cysts or endometriomas. Suggest ultrasound follow-up in 6-12 weeks . 2. There is moderate pelvic and adnexal free fluid. 3. Hysterectomy and right oophorectomy. Electronically signed by: Reggie Pascal MD (10/11/2020 2:28 PM) [id number]
--- NOTE | 2020-10-11 15:15 | RAD ---
PQRS Compliance Statement: One or more of the following individualized dose reduction techniques were utilized for this examinat ion: 1. Automated exposure control 2. Adjustment of the mA and/or kV according to patient size 3. Use of iterative reconstruction technique CT ABDOMEN+PELVIS W Clinical Indication: Reason: PELVIC LEFT SIDED PAIN / Comparison: CT abdomen and pelvis of contrast February 26, 2019. Technique: Helical CT imaging of the abdomen and pelvis is performed after 75 cc of Omnipaque 300 IV contrast. Oral contrast not administered. Findings: Lung bases are clear. Cardiac size normal. Cholecystectomy. There is trace free fluid posterior to the inferior liver. The liver, spleen, pancre as, adrenal glands, abdominal aorta, and kidneys are normal. The stomach is unremarkable. There is no dilated small bowel. The appendix is normal. There is scatte red stool in the colon. There is no colon wall thickening. No abdominal adenopathy or free fluid. There is a large amount of pelvic free fluid, the attenuation of the fluid measures 16-22 Hounsfield units. Better characterized on pelvic ultrasound, there are rim-enhancing lesions of the left ovary, one measures up to 3.8 cm, the other measures 2.7 cm. Uterus is surgically absent. The urinary bladde r is normal. No acute bone abnormality. Transitional lumbosacral anatomy on the right. IMPRESSION: 1. Better characterized on pelvic ultrasound, there are rim-enhancing cystic lesions of the left ova ry. There is a large amount of pelvic free fluid. 2. There is no other acute abdominal or pelvic abnormality. Electronically signed by: Reggie Pascal MD (10/11/2020 3:13 PM) [id number]
[2020-10-11 16:59] LABS: BILIRUBIN,URINE NEGATIVE (NEG); CLARITY,URINE CLEAR; COLOR,URINE YELLOW; NITRITE,URINE NEGATIVE (NEG); PROTEIN,URINE NEGATIVE (NEG-TRACE); UROBILINOGEN,URINE 0.2 mg/dL (0.2 mg/dL)
[2020-10-11 17:29] LABS: AMORPHOUS SEDIMENT,UR PRESENT /HPF; RBC,URINE 0 /HPF (0-2); WBC,URINE RARE /HPF (0-4)
[2020-10-11 17:30] LABS: BACTERIA,URINE FEW /HPF (0-FEW)
[2020-10-11] MEDS ORDERED: ONDA4TAB7 PO (17:38)
[2020-10-11] MEDS ORDERED: HYDR-2761 PO (17:38)
== END 2020-10-11 17:55 | disposition home or self-care (01) ==
LOC: ER 13:09
DX: N83.202 Unspecified ovarian cyst, left side (principal); R10.2 Pelvic and perineal pain; E03.9 Hypothyroidism, unspecified; F17.200 Nicotine dependence, unspecified, uncomplicated; Z90.49 Acquired absence of other specified parts of digestive tract; Z88.0 Allergy status to penicillin; Z88.1 Allergy status to other antibiotic agents; Z88.5 Allergy status to narcotic agent; Z88.8 Allergy status to other drugs, medicaments and biological substances
CPT/HCPCS: 36415; 74177; 76830; 76856; 80053; 81001; 83690; 84703; 85025; 96361; 96374; 96375; 99285; J1885; J2405; J7030; Q9967

== ENCOUNTER → 2021-01-13 | Outpatient (CLI) | payer OTHER ==
[~2021-01-13] MED LIST changes: +HYDR-2761 PO
--- NOTE | 2021-01-13 11:02 | RAD ---
EXAM: Pelvic sonogram. HISTORY: Left ovarian cyst follow-up. TECHNIQUE: Sonographic imaging of the pelvis was performed. COMPARISON: 10/11/2020. FINDINGS: The uterus and right ovary is surgically absent. The left ovary measures 6.2 x 3.3 x 3.1 cm and demonstrate normal blood flow. There is a hypoechoic lesion within the left ovary measuring 2.9 x 2.8 x 2.6 cm. This previously measured 3.2 x 3.1 x 3.0 cm. There is a smaller left ovarian follicle or follicular cyst with internal debris measuring 1.5 cm in maximum dimension, previously measuring 2.1 cm. There are few simple appearing ovarian follicles. There is no pelvic free fluid. IMPRESSION: 1. Slight interval decrease in the size of a 2.9 cm hypoechoic lesion within the left ovary, the appe arance of which favors a hemorrhagic cyst or endometrioma. There is also been interval decrease in a similar-appearing smaller left ovarian lesion measuring 1.5 cm, previously measuring 2.1 cm. Continue d follow-up in approximately 3 months is recommended. 2. Multiple small left ovarian follicles. 3. Surgically absent uterus and right ovary. Electronically signed by: Marium Orlando MD (01/13/2021 10:59 AM) [id number]
== END ==
LOC: US 10:16
PROVIDERS: ATTEND Obstetrics & Gynecology
DX: Z09 Encounter for follow-up examination after completed treatment for conditions other than malignant neoplasm (principal); N83.202 Unspecified ovarian cyst, left side; Z90.710 Acquired absence of both cervix and uterus
CPT/HCPCS: 76830

== ENCOUNTER → 2021-07-02 | Outpatient (CLI) | payer OTHER ==
--- NOTE | 2021-07-02 15:26 | KCIC ---
EXAM: Lumbar spine, 5 views. HISTORY: Sciatica. COMPARISON: None. FINDINGS: 5 views of the lumbar spine are obtained. 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 Based on this numbering system, there are 5 lumbar vertebral segments. 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 There is mild dextroscoliosis. There is no significant listhesis. The vertebral bodies are normal in height an d the disc spaces are preserved. There are surgical clips overlying the right abdomen. IMPRESSION: 1. No acute osseous finding. 2. Transitional thoracolumbar and lumbosacral segments, a normal variant. Electronically signed by: Marium Orlando MD (07/02/2021 3:24 PM) [id number]
== END ==
LOC: KCIC 14:38
PROVIDERS: ATTEND Physician Assistant Medical
DX: M41.86 Other forms of scoliosis, lumbar region (principal); M43.8X5 Other specified deforming dorsopathies, thoracolumbar region; M54.10 Radiculopathy, site unspecified; M54.41 Lumbago with sciatica, right side
CPT/HCPCS: 72110